=== PATIENT | female | born 1965 | race Caucasian/White ===

== ENCOUNTER 2018-01-09 15:45 | Emergency (ER) | payer MEDICAID, OTHER ==
[2018-01-09 15:46] VITALS: BMI 36.2
[2018-01-09 15:52] VITALS: O2SAT 99
[2018-01-09] MEDS ORDERED: Albuterol-Ipratrop 3 mg / 0.5 (3 ml) UD ONE ×2 (16:02→16:30)
--- NOTE | 2018-01-09 16:24 | C.PDOC ---
History Of Present Illness 52 y/o female, otherwise well, presents to the ED complaining of several days of cough, runny nose, and congestion. States that she feels as if she cannot catch her breath. +Tearing on exam. O2 sat is 92% on RA. On arrival patient is moving air, just very congested. Also notes subjective sensation of fever, did not take medication in the last couple of days. No nausea, vomiting, or chills. Time Seen by Provider: 01/09/18 15:57 Chief Complaint (Nursing): Cough, Cold, Congestion History Per: Patient History/Exam Limitations: no limitations Onset/Duration Of Symptoms: Days Current Symptoms Are (Timing): Still Present Associated Symptoms: Cough, Sinus Drainage, Nasal Congestion Past Medical History Reviewed: Historical Data, Nursing Documentation, Vital Signs Vital Signs: Last Vital Signs Temp 97.8 F 01/09/18 17:24 Pulse 84 01/09/18 17:24 Resp 18 01/09/18 17:24 BP 125/88 01/09/18 17:24 Pulse Ox 99 01/09/18 17:35 - Medical History PMH: Asthma, Fractures (RT. ARM/SCREW AND PLATE), Gastritis, HIV, HTN Surgical History: Tonsillectomy - [facility] Procedures CLOSED [ENDOSCOPIC] BIOPSY OF LARYNX (10/23/13) Family History: States: Unknown Family Hx - Social History Hx Tobacco Use: Yes Hx Alcohol Use: No Hx Substance Use: No - Immunization History Hx Tetanus Toxoid Vaccination: Yes Hx Influenza Vaccination: Yes Hx Pneumococcal Vaccination: Yes Review Of Systems Except As Marked, All Systems Reviewed And Found Negative. Constitutional: Negative for: Fever, Chills ENT: Positive for: Nose Discharge, Nose Congestion Cardiovascular: Negative for: Chest Pain Respiratory: Positive for: Cough Gastrointestinal: Negative for: Nausea, Vomiting Physical Exam - Physical Exam Appears: Non-toxic, No Acute Distress Skin: Normal Color, Warm, Dry Head: Atraumatic, Normacephalic, Other (Tender to frontal sinuses on palpation) Eye(s): bilateral: Normal Inspection Neck: Normal ROM Chest: Symmetrical Cardiovascular: Rhythm Regular, No Murmur Respiratory: No Accessory Muscle Use, Rhonchi (scattered), No Wheezing Extremity: Bilateral: Atraumatic, No Pedal Edema, Normal ROM Neurological/Psych: Oriented x3, Normal Speech, Normal Cranial Nerves ED Course And Treatment O2 Sat by Pulse Oximetry: 99 (RA) Pulse Ox Interpretation: Normal - Other Rad CXR X-Ray: Viewed By Me, Read By Radiologist Interpretation: FINDINGS: LINES AND TUBES: None. LUNG AND PLEURA: The lungs are well inflated and clear. No pleural effusion or pneumothorax. HEART AND MEDIASTINUM: The heart is not enlarged. The hilar and mediastinal contours are within normal limits. SKELETAL STRUCTURES: The bony structures are within normal limits for the patient's age. VISUALIZED UPPER ABDOMEN: Normal. OTHER FINDINGS: None. IMPRESSION: No active pulmonary disease. Medical Decision Making Medical Decision Making: Plan: Patient given duoneb x1, 200 mg tessalon perles, and 60 mg prednisone PO . Flu swab and chest x-ray ordered. Labs reviewed, negative flu. CXR is negative. 5:30pm On reevaluation patient reports feeling better. Lung sounds improved. Patient is a heavy smoker, knows she needs to quit. On further discussion, patient admits she has frequent sinus infections, and current symptoms are similar to prior episodes. Patient is medically stable for discharge. Counseled regarding diagnosis and smoking cessation. Disposition Counseled Patient/Family Regarding: Studies Performed, Diagnosis, Need For Followup, Rx Given, Smoking Cessation - Disposition Disposition: HOME/ ROUTINE Disposition Time: 17:27 Condition: IMPROVED Prescriptions: Albuterol HFA [Ventolin HFA 90 mcg/actuation (8 g)] 1 puff IH QID PRN #1 puff PRN Reason: Cough Amoxicillin/Clavulanate [Augmentin 875 MG-125 MG] 1 tab PO BID #14 tab Prednisone [Deltasone] 60 mg PO DAILY #12 tablet Instructions: Acute Bronchitis, Adult (DC) Forms: [employer] (Chilean), Work Excuse - POA Present On Arrival: None - Clinical Impression Clinical Impression: Sinusitis, Bronchitis - Scribe Statement The provider has reviewed the documentation as recorded by the Byron Crisostomo Provider Attestation: All medical record entries made by the Byron were at my direction and personally dictated by me. I have reviewed the chart and agree that the record accurately reflects my personal performance of the history, physical exam, medical decision making, and the department course for this patient. I have also personally directed, reviewed, and agree with the discharge instructions and disposition.
[2018-01-09] MEDS: Albuterol-Ipratrop 3 mg / 0.5 (3 ml) UD IH SCH (16:31)
[2018-01-09] MEDS ORDERED: Albuterol 0.042% Inhal Sol (1.25 mg/3 mL) UD ONE (16:46)
--- NOTE | 2018-01-09 16:54 | RAD ---
HISTORY: Cough and shortness of breath COMPARISON: No prior. TECHNIQUE: Chest PA and lateral FINDINGS: LINES AND TUBES: None. LUNG AND PLEURA: The lungs are well inflated and clear. No pleural effusion or pneumothorax. HEART AND MEDIASTINUM: The heart is not enlarged. The hilar and mediastinal contours are within normal limits. SKELETAL STRUCTURES: The bony structures are within normal limits for the patient's age. VISUALIZED UPPER ABDOMEN: Normal. OTHER FINDINGS: None. IMPRESSION: No active pulmonary disease.
[2018-01-09 17:27] VITALS: BP 125/88; PULSE 84; RESP 18; TEMP 97.8
== END 2018-01-09 17:35 | disposition home or self-care (01) ==
LOC: C.ER 15:45
DX: J40 Bronchitis, not specified as acute or chronic (principal); J32.9 Chronic sinusitis, unspecified; F17.210 Nicotine dependence, cigarettes, uncomplicated

== ENCOUNTER 2018-07-23 19:40 | Inpatient (IN) | payer MEDICAID ==
[2018-07-23 19:41] VITALS: BMI 36.2
[2018-07-23] MEDS ORDERED: Sodium Chloride 0.9% 1,000 ML IV ONE ×2 (20:12→21:49)
[2018-07-23] MEDS ORDERED: Sodium Chloride 0.9% 1,000 ML ONE ×2 (20:23→22:01)
[2018-07-23 20:30] LABS: BASO % 0.5 % (0.0-2.0); EOS # 0.2 K/uL (0.0-0.7); HEMOGLOBIN 13.6 g/dL (11.0-16.0); LYMPH % 15.3 % (20.0-40.0); MEAN CORPUSCULAR HEMOGLOBIN 30.1 pg (27.0-31.0); MEAN CORPUSCULAR HGB CONC 34.6 g/dL (33.0-37.0); MEAN PLATELET VOLUME 7.2 fL (7.2-11.7); MONO # 0.7 K/uL (0.0-0.8); NEUT # 4.8 K/uL (1.8-7.0); NEUT % 70.2 % (50.0-75.0); RBC 4.54 Mil/uL (3.80-5.20); RED CELL DISTRIBUTION WIDTH 14.5 % (11.5-14.5); WHITE BLOOD COUNT 6.8 K/uL (4.8-10.8)
[2018-07-23 20:35] LABS: MEAN CELL VOLUME 86.9 fL (81.0-99.0)
--- NOTE | 2018-07-23 20:47 | C.PDOC ---
History Of Present Illness 53 year old female, whose past medical history includes HTN (no longer taking medications) and HIV, presents to the ED for evaluation of abdominal pain which began 2 days ago. Patient also reports nausea. She states her pain is primarily in epigatric region and radiates towards her right side. Patient is also c/o right knee pain and swelling for several days. She denies fever, chills, headache, dizziness, chest pain, shortness of breath, and vomiting. Time Seen by Provider: 07/23/18 19:58 Chief Complaint (Nursing): Abdominal Pain History Per: Patient Onset/Duration Of Symptoms: Days (2) Current Symptoms Are (Timing): Still Present Location Of Pain/Discomfort: Epigastric, Other (right-sided abdominal pain ) Quality Of Discomfort: "Pain" Associated Symptoms: Nausea. denies: Fever, Chills, Vomiting Additional History Per: Patient Abnormal Vaginal Bleeding: No Past Medical History Reviewed: Historical Data, Nursing Documentation, Vital Signs Vital Signs: Last Vital Signs Temp 98.4 F 07/23/18 20:00 Pulse 99 H 07/23/18 20:00 Resp 18 07/23/18 20:00 BP 98/68 L 07/23/18 20:00 Pulse Ox 98 07/23/18 20:00 - Medical History PMH: Asthma, Fractures (RT. ARM/SCREW AND PLATE), Gastritis, HIV, HTN Surgical History: Tonsillectomy - [facility] Procedures CLOSED [ENDOSCOPIC] BIOPSY OF LARYNX (10/23/13) Family History: States: Unknown Family Hx - Social History Hx Tobacco Use: Yes Hx Alcohol Use: Yes Hx Substance Use: No - Immunization History Hx Tetanus Toxoid Vaccination: Yes Hx Influenza Vaccination: Yes Hx Pneumococcal Vaccination: Yes Review Of Systems Constitutional: Negative for: Fever, Chills Cardiovascular: Negative for: Chest Pain Respiratory: Negative for: Shortness of Breath Gastrointestinal: Positive for: Nausea, Abdominal Pain, Other (loose stools ). Negative for: Vomiting Musculoskeletal: Positive for: Other (right knee pain and swelling ) Neurological: Negative for: Headache, Dizziness Physical Exam - Physical Exam Appears: Non-toxic, No Acute Distress Skin: Normal Color, Warm, Dry Head: Atraumatic, Normacephalic Eye(s): bilateral: Normal Inspection Oral Mucosa: Moist Teeth: No Normal Dentition (poor ) Neck: Normal ROM, Supple Chest: Symmetrical, No Deformity, No Tenderness Cardiovascular: Rhythm Regular, No Murmur Respiratory: Normal Breath Sounds, No Rales, No Rhonchi, No Wheezing Gastrointestinal/Abdominal: Soft, Tenderness (epigastric, right upper quadrant ), No Guarding, No Rebound Extremity: Tenderness (to bilateral knees, right greater than left ), Capillary Refill (less than 2 seconds ), Swelling (to bilateral knees, right greater than left ), Other (+1 pitting edema to bilateral lower extremities ) Pulses: Left Dorsalis Pedis: Normal, Right Dorsalis Pedis: Normal Neurological/Psych: Oriented x3, Normal Speech, Normal Cognition ED Course And Treatment - Laboratory Results Result Diagrams: 07/23/18 20:25 07/23/18 20:25 O2 Sat by Pulse Oximetry: 98 - CT Scan/US CT A/P Other Rad Studies (CT/US): Read By Radiologist, Radiology Report Reviewed CT/US Interpretation: EXAM: CT Abdomen and Pelvis without IV contrast. CLINICAL HISTORY: URQ pain. TECHNIQUE: Axial computed tomography images of the abdomen and pelvis without intravenous contrast. 0.00 mGy-cm. CONTRAST: Without. COMPARISON: None provided. FINDINGS: LUNG BASES: The lung bases appear clear. No pleural effusions are seen. LIVER: There is hepatomegaly. The liver measured 18.1 cm in the midclavicular line. GALLBLADDER AND BILE DUCTS: The gallbladder appears normal in size and configuration. Cholelithiasis is identified. No biliary ductal dilatation is evident. PANCREAS: Unremarkable. SPLEEN: Unremarkable. ADRENAL GLANDS: Unremarkable. KIDNEYS, URETERS, AND BLADDER: The kidneys appear within normal limits. There is no hydronephrosis or hydroureter. No urinary calculi are seen. The urinary bladder appeared normal in size and configuration. STOMACH AND BOWEL: Unremarkable appearance of the stomach and bowel. No evidence of bowel obstruction. No evidence suggesting enteritis or colitis. APPENDIX: No evidence of acute appendicitis on CT examination. PERITONEUM: No free fluid. No free air. A very small umbilical hernia is present which contains fat. LYMPH NODES: No lymphadenopathy is evident. REPRODUCTIVE: Unremarkable as visualized. VASCULATURE: No evidence of abdominal aortic aneurysm. BONES: No aggressive appearing osseous lesion. No acute osseous pathology evident. Bilateral pars defects are noted within L5 with no associated spondylolisthesis. IMPRESSION: 1. Hepatomegaly. 2. Cholelithiasis. 3. Small umbilical hernia which contains fat. 4. Bilateral pars defects within L5. No spondylolisthesis. Medical Decision Making Medical Decision Making: Differential diagnoses include but are not limited to: gallbladder disease vs gastritis vs viral gastroenteritis Plan: Bloodwork, urinalysis, CT A/P ordered and reviewed. Morphine IVP, Pepcid IVP, and IV Fluids given. CT A/P was reviewed by me, and shows gallstones. Patient with elevated lipase and history of HIV, will diagnose as gallstones, pancreatitis, and patient with other comorbidities Patient is afebrile at this time, with no white count and no lactate (does not meet sepsis criteria) Will start patient on antibiotics at 22:17. Zosyn IVP given. Dr. Lyn (Hospitalist) paged. Disposition Discussed With Dr.: Cristino Lyn Counseled Patient/Family Regarding: Studies Performed, Diagnosis - Disposition Disposition: HOSPITALIZED Disposition Time: 22:15 Condition: GUARDED - Clinical Impression Clinical Impression: Pancreatitis, Gallstones - Scribe Statement The provider has reviewed the documentation as recorded by the Scribe (Brianne Jeter) Provider Attestation: All medical record entries made by the Scribe were at my direction and personally dictated by me. I have reviewed the chart and agree that the record accurately reflects my personal performance of the history, physical exam, medical decision making, and the department course for this patient. I have also personally directed, reviewed, and agree with the discharge instructions and disposition. Decision To Admit - Pt Status Changed To: Hospital Disposition Of: Observation - . Bed Request Type: Regular Admitting Physician: Cristino Lyn Patient Diagnosis: Pancreatitis, Gallstones
[2018-07-23 21:07] LABS: BLOOD UREA NITROGEN 18 mg/dL (7-17); CALCIUM 9.1 mg/dl (8.6-10.4); GFR NON-AFRICAN AMERICAN > 60; LIPASE 787 U/L (23-300)
[2018-07-23 21:23] LABS: ALB/GLOB RATIO 1.2 (1.0-2.1); ALBUMIN 4.2 g/dL (3.5-5.0); ALT/SGPT 12 U/L (9-52); AST/SGOT 34 U/L (14-36)
[2018-07-23] MEDS ORDERED: Piperacillin/Tazobact 3.375 GM in Sodium Chloride 100 ML IVPB STA (21:49)
[2018-07-23] MEDS ORDERED: Piperacillin/Tazobact 3.375 gm 100 ML IVPB ONE (22:01)
[2018-07-23 22:09] LABS: PROTHROMBIN TIME 11.2 SECONDS (9.7-12.2)
[2018-07-23 22:12] LABS: HCG,QUALITATIVE URINE NEGATIVE (NEGATIVE)
[2018-07-23 22:13] LABS: SQUAMOUS EPITHIAL < 1 /hpf (0-5); URINE BILIRUBIN NEGATIVE (NEGATIVE); URINE BLOOD 1+ (NEGATIVE); URINE CLARITY Clear (Clear); URINE COLOR Straw (YELLOW); URINE GLUCOSE (UA) NORMAL (Normal); URINE LEUKOCYTE ESTERASE NEG Leu/uL (Negative); URINE PROTEIN NEGATIVE (NEGATIVE); URINE UROBILINOGEN NORMAL mg/dL (0.2-1.0)
[2018-07-23 22:14] LABS: VENOUS BLOOD GAS BASE EXCESS -0.2 mmol/L (0.0-2.0); VENOUS BLOOD GAS PCO2 44 mmHg (40-60); VENOUS BLOOD GAS PO2 39 mm/Hg (30-55); VENOUS BLOOD PH 7.37 (7.32-7.43)
--- NOTE | 2018-07-24 03:05 | CP.PCM.HP ---
<Pilar Buenrostro - Last Filed: 07/24/18 03:21> History of Present Illness - History of Present Illness History of Present Illness: cc: "my stomach hurts" Ms. Galan is a Latvian speaking 53yo obese female with a PMH of HIV, hypertension, osteoarthritis, gastritis, and recent H. pylori diagnosis here today for worsening abdominal pain. She has had episodes of epigastric pain since 3 weeks ago when diagnosed with stomach infection. The omeprazole and clarithromycin she was given helped with that pain that has ebbed and flowed since diagnosis. The stabbing pain is 8/10 at worst and can go away completely after medication. The localized pain has worsened over the last week, and e specially over the last 2 days when a RUQ pain developed. She states it is two separate pains, but in tandem, worsens both. The pressure pain on her RUQ radiates around her flank and makes it difficult to take deep breaths. At worst it is a 6/10 and does not drop entirely away. Both abdominal pains are worse at night and worsened about 30 minutes after eating. Denies fever, change in weight, chest pain, nausea, vomiting, change in appetite, constipation, diarrhea. She admits to taking OTC Tylenol for the pain without relief. She averages about 5 tablets of Extra Strength Tylenol over the course of the day for the last month. PMH: HIV, HTN, OA, gastritis, H. pylori Med: unknown ([facility]: [phone]). 1 tab HIV Rx po daily, 1 tab PPI po daily, 1 tab Clarythromycin po daily, OTC Tylenol PRN All: NKDA PSxHx: tonsillectomy@8yo FamHx: Father - [place]@78, lung CA, MGM - stomach CA SocHx: smokes 7 cigs/day since 19yo, weekend drinker: 4-5 drinks/day since 19yo, denies illicit drug use. Lives with daughter, works at [employer]: Menopause within last year PMD: "Dr. Paris" CM: Arpan [phone] ext [phone] Present on Admission - Present on Admission Any Indicators Present on Admission: No Review of Systems - Constitutional Constitutional: Chills. absent: Fever, Headache, Weight Gain, Weight Loss - EENT Eyes: absent: Blurred Vision, Change in Vision, Diplopia Ears: Disequilibrium, Dizziness. absent: Decreased Hearing, Tinnitus Nose/Mouth/Throat: absent: Dysphagia, Sore Throat - Cardiovascular Cardiovascular: absent: Chest Pain, Palpitations - Respiratory Respiratory: Dyspnea. absent: Cough, Wheezing - Gastrointestinal Gastrointestinal: Abdominal Pain. absent: Belching, Bloating, Constipation, Diarrhea, Dysphagia, Hematochezia, Melena, Nausea, Vomiting - Genitourinary Genitourinary: absent: Difficulty Urinating, Dysuria, Urinary Frequency - Reproductive: Female Reproductive:Female: Post Menopausal - Musculoskeletal Musculoskeletal: absent: Muscle Cramps, Myalgias, Stiffness, Tingling - Integumentary Integumentary: absent: Bleeding Lesions, Rash - Neurological Neurological: absent: Numbness, Tingling - Endocrine Endocrine: absent: Fatigue - Hematologic/Lymphatic Hematologic: absent: Easy Bleeding, Easy Bruising Past Patient History - Past Medical History & Family History Past Medical History?: Yes - Past Social History Smoking Status: Heavy Smoker > 10 Cigarettes Daily Alcohol: Social Drugs: Denies Home Situation {Lives}: With Family - CARDIAC Hx Hypertension: Yes - PULMONARY Hx Asthma: Yes - NEUROLOGICAL Hx Neurological Disorder: No - HEENT Hx HEENT Problems: Yes Hx Glaucoma: Yes Other/Comment: VOCAL CORD LESION - ENDOCRINE/METABOLIC Hx Endocrine Disorders: No - HEMATOLOGICAL/ONCOLOGICAL Hx Human Immunodeficiency Virus (HIV): Yes - INTEGUMENTARY Hx Dermatological Problems: No - MUSCULOSKELETAL/RHEUMATOLOGICAL Hx Fractures: Yes (RT. ARM/SCREW AND PLATE) - GASTROINTESTINAL Hx Gastritis: Yes - GENITOURINARY/GYNECOLOGICAL Hx Genitourinary Disorders: No - PSYCHIATRIC Hx Substance Use: No - SURGICAL HISTORY Hx Tonsillectomy: Yes - ANESTHESIA Hx Anesthesia: Yes Hx Anesthesia Reactions: No Hx Malignant Hyperthermia: No Meds Allergies/Adverse Reactions: Allergies Allergy/AdvReac Type Severity Reaction Status Date / Time No Known Allergies Allergy Verified 07/23/18 20:04 Physical Exam - Constitutional Appears: Well, No Acute Distress - Head Exam Head Exam: ATRAUMATIC, NORMOCEPHALIC - Eye Exam Eye Exam: EOMI, Normal appearance, PERRL. absent: Scleral icterus Pupil Exam: NORMAL ACCOMODATION - ENT Exam ENT Exam: Mucous Membranes Moist - Respiratory Exam Respiratory Exam: Clear to Auscultation Bilateral, NORMAL BREATHING PATTERN. absent: Accessory Muscle Use - Cardiovascular Exam Cardiovascular Exam: REGULAR RHYTHM, +S1, +S2. absent: Systolic Murmur - GI/Abdominal Exam GI & Abdominal Exam: Guarding, Hyperactive Bowel Sounds, Soft, Tenderness. absent: Rebound Additional comments: obese TTP on epigastric region, TTP of LUQ radiates to epigastric region TTP on RUQ without radiation. + Goff's sign - Rectal Exam Rectal Exam: Deferred - Extremities Exam Extremities exam: Positive for: joint swelling (chronic R knee swelling), normal capillary refill, pedal pulses present. Negative for: calf tenderness Additional comments: IV access on R UE - Back Exam Back exam: absent: CVA tenderness (L), CVA tenderness (R) - Neurological Exam Neurological exam: Alert, CN II-XII Intact, Oriented x3, Reflexes Normal - Psychiatric Exam Psychiatric exam: Normal Affect, Normal Mood - Skin Skin Exam: Dry, Intact, Normal Color, Warm Results - Vital Signs Recent Vital Signs: Last Vital Signs Temp 97.4 F L 07/24/18 00:26 Pulse 85 07/24/18 00:26 Resp 18 07/24/18 00:26 BP 107/66 07/24/18 00:26 Pulse Ox 95 07/24/18 00:26 - Labs Result Diagrams: 07/23/18 20:25 07/23/18 20:25 Labs: Laboratory Results - last 24 hr 07/23/18 07/23/18 07/23/18 20:25 20:25 21:59 WBC 6.8 RBC 4.54 Hgb 13.6 Hct 39.4 MCV 86.9 D MCH 30.1 MCHC 34.6 RDW 14.5 Plt Count 223 MPV 7.2 Neut % (Auto) 70.2 Lymph % (Auto) 15.3 L Mayes % (Auto) 11.0 H Eos % (Auto) 3.0 Baso % (Auto) 0.5 Neut # (Auto) 4.8 Lymph # (Auto) 1.0 Mayes # (Auto) 0.7 Eos # (Auto) 0.2 Baso # (Auto) 0.0 PT 11.2 INR 1.0 APTT 28 pO2 VBG pH VBG pCO2 VBG HCO3 VBG Total CO2 VBG O2 Sat (Calc) VBG Base Excess VBG Potassium Glucose Lactate Sodium 136 Potassium 4.5 Chloride 102 Carbon Dioxide 24 Anion Gap 14 BUN 18 H Creatinine 0.6 L Est GFR ( Amer) > 60 Est GFR (Non-Af Amer) > 60 Random Glucose 175 H D Calcium 9.1 Phosphorus Magnesium Total Bilirubin 0.9 AST 34 ALT 12 Alkaline Phosphatase 97 Total Protein 7.7 Albumin 4.2 Globulin 3.5 Albumin/Globulin Ratio 1.2 Lipase 787 H Venous Blood Potassium Urine Color Urine Clarity Urine pH Ur Specific [place] Urine Protein Urine Glucose (UA) Urine Ketones Urine Blood Urine Nitrate Urine Bilirubin Urine Urobilinogen Ur Leukocyte Esterase Urine WBC (Auto) Urine RBC (Auto) Ur Squamous Epith Cells Urine HCG, Qual 07/23/18 07/23/18 07/23/18 21:59 22:05 22:07 WBC RBC Hgb Hct MCV MCH MCHC RDW Plt Count MPV Neut % (Auto) Lymph % (Auto) Mayes % (Auto) Eos % (Auto) Baso % (Auto) Neut # (Auto) Lymph # (Auto) Mayes # (Auto) Eos # (Auto) Baso # (Auto) PT INR APTT pO2 39 VBG pH 7.37 VBG pCO2 44 VBG HCO3 24.1 VBG Total CO2 26.8 VBG O2 Sat (Calc) 81.5 H VBG Base Excess -0.2 L VBG Potassium 3.6 Glucose 110 H Lactate 1.7 Sodium 139.0 Potassium Chloride 105.0 Carbon Dioxide Anion Gap BUN Creatinine Est GFR ( Amer) Est GFR (Non-Af Amer) Random Glucose Calcium Phosphorus 3.6 Magnesium 2.0 Total Bilirubin AST ALT Alkaline Phosphatase Total Protein Albumin Globulin Albumin/Globulin Ratio Lipase Venous Blood Potassium 3.6 Urine Color Straw Urine Clarity Clear Urine pH 5.0 Ur Specific [place] 1.004 Urine Protein Negative Urine Glucose (UA) Normal Urine Ketones Negative Urine Blood 1+ H Urine Nitrate Negative Urine Bilirubin Negative Urine Urobilinogen Normal Ur Leukocyte Esterase Neg Urine WBC (Auto) < 1 Urine RBC (Auto) 1 Ur Squamous Epith Cells < 1 Urine HCG, Qual Negative Assessment & Plan - Assessment and Plan (Free Text) Assessment: 53yo morbidly obese F PMH HIV, HTN, OA, gastritis, recent H. pylori diagnosis admitted for epigastric and RUQ pain. Plan: Epigastric Pain Gastritis with H. pylori infection vs. Pancreatitis lipase OA 787 Pepcid 20mg IVP, Morphine 2mg IVP, Zosyn 3.375g IVPB, 2L NS given in ED - CT A/P without contrast (07/23): pending read. prelim: hepatomegaly, unremarkable pancreas, unremarkable stomach - f/u amylase, lipase - f/u Blood Cx - f/u US Abdomen complete - Tramadol 50mg po TID prn - GI consulted: Dr. Hutton - meliton appreciated RUQ pain Cholelithiasis - CT A/P without contrast (07/23): pending read. prelim: cholelithiasis without biliary duct dilation - f/u US Abdomen complete - f/u HIDA scan - Gen Surg consulted: Dr. Griggs - help appreciated HIV Patient takes 1 tab per day for HIV, but is unsure of name or dosing. She has been controlled since being diagnosed 6 years ago - call pharmacy for medication and dosage - f/u CD4 count. WBC 6.8 OA Hypertension Patient denies being on any home medications BP has been stable since admission - call pharmacy to confirm medication regimen - monitor vitals Osteoarthritis of R knee - hold home Tylenol - Tramadol 50mg po TID prn PPx - DVT: SCDs - GI: PPI (call pharmacy to confirm) - Diet: NPO except meds - IVF: NS@125 d/w Dr. Riki Buenrostro PGY-1 - Date & Time Date: 07/23/18 Time: 23:00 <Cristino Lyn P - Last Filed: 07/24/18 08:09> Results - Vital Signs Recent Vital Signs: Last Vital Signs Temp 97.7 F 07/24/18 07:00 Pulse 68 07/24/18 07:00 Resp 20 07/24/18 07:00 BP 130/78 07/24/18 07:00 Pulse Ox 99 07/24/18 07:00 - Labs Result Diagrams: 07/23/18 20:25 07/24/18 07:28 Labs: Laboratory Results - last 24 hr 07/23/18 07/23/18 07/23/18 20:25 20:25 21:59 WBC 6.8 RBC 4.54 Hgb 13.6 Hct 39.4 MCV 86.9 D MCH 30.1 MCHC 34.6 RDW 14.5 Plt Count 223 MPV 7.2 Neut % (Auto) 70.2 Lymph % (Auto) 15.3 L Mayes % (Auto) 11.0 H Eos % (Auto) 3.0 Baso % (Auto) 0.5 Neut # (Auto) 4.8 Lymph # (Auto) 1.0 Mayes # (Auto) 0.7 Eos # (Auto) 0.2 Baso # (Auto) 0.0 PT 11.2 INR 1.0 APTT 28 pO2 VBG pH VBG pCO2 VBG HCO3 VBG Total CO2 VBG O2 Sat (Calc) VBG Base Excess VBG Potassium Glucose Lactate Sodium 136 Potassium 4.5 Chloride 102 Carbon Dioxide 24 Anion Gap 14 BUN 18 H Creatinine 0.6 L Est GFR ( Amer) > 60 Est GFR (Non-Af Amer) > 60 POC Glucose (mg/dL) Random Glucose 175 H D Calcium 9.1 Phosphorus Magnesium Total Bilirubin 0.9 AST 34 ALT 12 Alkaline Phosphatase 97 Total Protein 7.7 Albumin 4.2 Globulin 3.5 Albumin/Globulin Ratio 1.2 Amylase Lipase 787 H Venous Blood Potassium Urine Color Urine Clarity Urine pH Ur Specific [place] Urine Protein Urine Glucose (UA) Urine Ketones Urine Blood Urine Nitrate Urine Bilirubin Urine Urobilinogen Ur Leukocyte Esterase Urine WBC (Auto) Urine RBC (Auto) Ur Squamous Epith Cells Urine HCG, Qual 07/23/18 07/23/18 07/23/18 21:59 22:05 22:07 WBC RBC Hgb Hct MCV MCH MCHC RDW Plt Count MPV Neut % (Auto) Lymph % (Auto) Mayes % (Auto) Eos % (Auto) Baso % (Auto) Neut # (Auto) Lymph # (Auto) Mayes # (Auto) Eos # (Auto) Baso # (Auto) PT INR APTT pO2 39 VBG pH 7.37 VBG pCO2 44 VBG HCO3 24.1 VBG Total CO2 26.8 VBG O2 Sat (Calc) 81.5 H VBG Base Excess -0.2 L VBG Potassium 3.6 Glucose 110 H Lactate 1.7 Sodium 139.0 Potassium Chloride 105.0 Carbon Dioxide Anion Gap BUN Creatinine Est GFR ( Amer) Est GFR (Non-Af Amer) POC Glucose (mg/dL) Random Glucose Calcium Phosphorus 3.6 Magnesium 2.0 Total Bilirubin AST ALT Alkaline Phosphatase Total Protein Albumin Globulin Albumin/Globulin Ratio Amylase Lipase Venous Blood Potassium 3.6 Urine Color Straw Urine Clarity Clear Urine pH 5.0 Ur Specific [place] 1.004 Urine Protein Negative Urine Glucose (UA) Normal Urine Ketones Negative Urine Blood 1+ H Urine Nitrate Negative Urine Bilirubin Negative Urine Urobilinogen Normal Ur Leukocyte Esterase Neg Urine WBC (Auto) < 1 Urine RBC (Auto) 1 Ur Squamous Epith Cells < 1 Urine HCG, Qual Negative 07/24/18 07/24/18 06:35 07:28 WBC RBC Hgb Hct MCV MCH MCHC RDW Plt Count MPV Neut % (Auto) Lymph % (Auto) Mayes % (Auto) Eos % (Auto) Baso % (Auto) Neut # (Auto) Lymph # (Auto) Mayes # (Auto) Eos # (Auto) Baso # (Auto) PT INR APTT pO2 VBG pH VBG pCO2 VBG HCO3 VBG Total CO2 VBG O2 Sat (Calc) VBG Base Excess VBG Potassium Glucose Lactate Sodium 139 Potassium 4.2 Chloride 109 H Carbon Dioxide 25 Anion Gap 9 L BUN 15 Creatinine 0.8 Est GFR ( Amer) > 60 Est GFR (Non-Af Amer) > 60 POC Glucose (mg/dL) 113 H Random Glucose 104 D Calcium 8.6 Phosphorus 3.8 Magnesium 2.1 Total Bilirubin 0.3 AST 16 ALT 8 L D Alkaline Phosphatase 86 Total Protein 6.2 L Albumin 3.4 L Globulin 2.8 Albumin/Globulin Ratio 1.2 Amylase 68 Lipase 349 H Venous Blood Potassium Urine Color Urine Clarity Urine pH Ur Specific [place] Urine Protein Urine Glucose (UA) Urine Ketones Urine Blood Urine Nitrate Urine Bilirubin Urine Urobilinogen Ur Leukocyte Esterase Urine WBC (Auto) Urine RBC (Auto) Ur Squamous Epith Cells Urine HCG, Qual Attending/Attestation - Attestation I have personally seen and examined this patient.: Yes I have fully participated in the care of the patient.: Yes I have reviewed all pertinent clinical information: Yes Notes (Text): 07/24/18 08:05 Epigastric and RUQ pain Elevated lipase, dd of hiv med, recent alcohol, gb stones, peptic ulcer eroding ? peptic ulcer vs gastritis Clinically suspect cholecystitis, no inflammation on CT but small calcified calcuslus noticed on ct, close to cystic duct HIV on DAMICO recently changed meds? reason Alcohol abuse, counselled Plan HIDA/USG HIV/CD4 status, medication information for the treating physician GI/Surg consult See orders for detail.
[2018-07-24] MEDS: Sodium Chloride 0.9% 1,000 ML IV SCH ×3 (04:28→20:42)
--- NOTE | 2018-07-24 05:25 | CP.PCM.CON ---
<Hector Dukes - Last Filed: 07/24/18 09:03> History of Present Illness - History of Present Illness History of Present Illness: Surgery Consult Note- Dr. Griggs Reason for Consult: Cholecystitis 53F pmhx significant for HIV, recent H.Pylori presents to [facility] for progressively worsening mid-epigastric to RUQ abdominal pain over the last 3 weeks. States during that time she was diagnosed w/ H.Pylori and is currently taking medications. RUQ abd pain worsens after eating. Tylenol analgesia has provided minimal relief Denies: fevers, chills, changes in urinary habits, recent sick contacts/foreign travel PMH: HIV, H. Pylori, Gastritis, HTN, OA PSH: Tonillectomy ALL: NKDA SocialHx: smokes 1/2 ppd for > 30 years. social eoth, recreational drug use Review of Systems - Review of Systems All systems: reviewed and no additional remarkable complaints except - Constitutional Constitutional: As Per HPI Past Patient History - Past Medical History & Family History Past Medical History?: Yes - Past Social History Smoking Status: Heavy Smoker > 10 Cigarettes Daily Alcohol: Social Drugs: Denies Home Situation {Lives}: With Family - CARDIAC Hx Hypertension: Yes - PULMONARY Hx Asthma: Yes - NEUROLOGICAL Hx Neurological Disorder: No - HEENT Hx HEENT Problems: Yes Hx Glaucoma: Yes Other/Comment: VOCAL CORD LESION - ENDOCRINE/METABOLIC Hx Endocrine Disorders: No - HEMATOLOGICAL/ONCOLOGICAL Hx Human Immunodeficiency Virus (HIV): Yes - INTEGUMENTARY Hx Dermatological Problems: No - MUSCULOSKELETAL/RHEUMATOLOGICAL Hx Fractures: Yes (RT. ARM/SCREW AND PLATE) - GASTROINTESTINAL Hx Gastritis: Yes - GENITOURINARY/GYNECOLOGICAL Hx Genitourinary Disorders: No - PSYCHIATRIC Hx Substance Use: No - SURGICAL HISTORY Hx Tonsillectomy: Yes - ANESTHESIA Hx Anesthesia: Yes Hx Anesthesia Reactions: No Hx Malignant Hyperthermia: No Meds Allergies/Adverse Reactions: Allergies Allergy/AdvReac Type Severity Reaction Status Date / Time No Known Allergies Allergy Verified 07/23/18 20:04 - Medications Medications: Current Medications Sodium Chloride (Sodium Chloride 0.9%) 1,000 mls @ 125 mls/hr IV .Q8H [facility] Last Admin: 07/24/18 04:28 Dose: 125 mls/hr Tramadol HCl (Ultram) 50 mg PO TID PRN PRN Reason: Pain, moderate (4-7) Physical Exam - Constitutional Appears: Non-toxic, No Acute Distress - Eye Exam Eye Exam: EOMI. absent: Scleral icterus - ENT Exam ENT Exam: Mucous Membranes Moist - Respiratory Exam Respiratory Exam: NORMAL BREATHING PATTERN. absent: Accessory Muscle Use, Respiratory Distress - Cardiovascular Exam Cardiovascular Exam: REGULAR RHYTHM. absent: Bradycardia, Tachycardia - GI/Abdominal Exam GI & Abdominal Exam: Guarding (voluntary guarding), Soft, Tenderness (TTP RUQ, + Goff's, more tender to mid-epigastrum) - Neurological Exam Neurological exam: Alert, Oriented x3 - Psychiatric Exam Psychiatric exam: Normal Affect - Skin Skin Exam: Intact, Warm Results - Vital Signs Recent Vital Signs: Last Vital Signs Temp 97.4 F L 07/24/18 00:26 Pulse 85 07/24/18 00:26 Resp 18 07/24/18 00:26 BP 107/66 07/24/18 00:26 Pulse Ox 95 07/24/18 00:26 - Labs Result Diagrams: 07/24/18 07:28 07/24/18 07:28 Labs: Laboratory Results - last 24 hr 07/23/18 07/23/18 07/23/18 20:25 20:25 21:59 WBC 6.8 RBC 4.54 Hgb 13.6 Hct 39.4 MCV 86.9 D MCH 30.1 MCHC 34.6 RDW 14.5 Plt Count 223 MPV 7.2 Neut % (Auto) 70.2 Lymph % (Auto) 15.3 L [place] % (Auto) 11.0 H Eos % (Auto) 3.0 Baso % (Auto) 0.5 Neut # (Auto) 4.8 Lymph # (Auto) 1.0 Harmon # (Auto) 0.7 Eos # (Auto) 0.2 Baso # (Auto) 0.0 PT 11.2 INR 1.0 APTT 28 pO2 VBG pH VBG pCO2 VBG HCO3 VBG Total CO2 VBG O2 Sat (Calc) VBG Base Excess VBG Potassium Glucose Lactate Sodium 136 Potassium 4.5 Chloride 102 Carbon Dioxide 24 Anion Gap 14 BUN 18 H Creatinine 0.6 L Est GFR ( Amer) > 60 Est GFR (Non-Af Amer) > 60 Random Glucose 175 H D Calcium 9.1 Phosphorus Magnesium Total Bilirubin 0.9 AST 34 ALT 12 Alkaline Phosphatase 97 Total Protein 7.7 Albumin 4.2 Globulin 3.5 Albumin/Globulin Ratio 1.2 Lipase 787 H Venous Blood Potassium Urine Color Urine Clarity Urine pH Ur Specific [place] Urine Protein Urine Glucose (UA) Urine Ketones Urine Blood Urine Nitrate Urine Bilirubin Urine Urobilinogen Ur Leukocyte Esterase Urine WBC (Auto) Urine RBC (Auto) Ur Squamous Epith Cells Urine HCG, Qual 07/23/18 07/23/18 07/23/18 21:59 22:05 22:07 WBC RBC Hgb Hct MCV MCH MCHC RDW Plt Count MPV Neut % (Auto) Lymph % (Auto) [place] % (Auto) Eos % (Auto) Baso % (Auto) Neut # (Auto) Lymph # (Auto) [place] # (Auto) Eos # (Auto) Baso # (Auto) PT INR APTT pO2 39 VBG pH 7.37 VBG pCO2 44 VBG HCO3 24.1 VBG Total CO2 26.8 VBG O2 Sat (Calc) 81.5 H VBG Base Excess -0.2 L VBG Potassium 3.6 Glucose 110 H Lactate 1.7 Sodium 139.0 Potassium Chloride 105.0 Carbon Dioxide Anion Gap BUN Creatinine Est GFR ( Amer) Est GFR (Non-Af Amer) Random Glucose Calcium Phosphorus 3.6 Magnesium 2.0 Total Bilirubin AST ALT Alkaline Phosphatase Total Protein Albumin Globulin Albumin/Globulin Ratio Lipase Venous Blood Potassium 3.6 Urine Color Straw Urine Clarity Clear Urine pH 5.0 Ur Specific [place] 1.004 Urine Protein Negative Urine Glucose (UA) Normal Urine Ketones Negative Urine Blood 1+ H Urine Nitrate Negative Urine Bilirubin Negative Urine Urobilinogen Normal Ur Leukocyte Esterase Neg Urine WBC (Auto) < 1 Urine RBC (Auto) 1 Ur Squamous Epith Cells < 1 Urine HCG, Qual Negative Assessment & Plan - Assessment and Plan (Free Text) Assessment: 53F w/ Pancreatitis etiology gallstone vs HAART meds; H.Pylori and symptomatic cholelithiasis Plan: - resume H.Pylori Treatment - ordered ABD US; f/u - repeat AM labs - continue medical management - will follow closely - further recs [facility] <Serg Griggs - Last Filed: 07/26/18 17:17> Meds - Medications Medications: Current Medications Sodium Chloride (Sodium Chloride 0.9%) 1,000 mls @ 125 mls/hr IV .Q8H [facility] Last Admin: 07/26/18 12:00 Dose: Not Given Piperacillin Sod/Tazobactam Sod (Zosyn 3.375 Gm Iv Premix) 3.375 gm in 50 mls @ 100 mls/hr IVPB Q6H [facility]; Protocol Last Admin: 07/26/18 14:51 Dose: 100 mls/hr Ketorolac Tromethamine (Toradol) 30 mg IVP Q6 [facility] Pantoprazole Sodium (Protonix Inj) 40 mg IVP DAILY [facility] Last Admin: 07/26/18 09:12 Dose: 40 mg Results - Vital Signs Recent Vital Signs: Last Vital Signs Temp 97.5 F L 07/26/18 14:15 Pulse 66 07/26/18 14:15 Resp 18 07/26/18 14:15 BP 156/84 H 07/26/18 14:15 Pulse Ox 99 07/26/18 14:15 - Labs Result Diagrams: 07/26/18 06:50 07/26/18 06:50 Labs: Laboratory Results - last 24 hr 07/26/18 07/26/18 07/26/18 06:50 06:50 06:50 WBC 3.8 L RBC 4.27 Hgb 12.9 Hct 37.8 MCV 88.5 MCH 30.2 MCHC 34.2 RDW 14.0 Plt Count 177 MPV 7.7 Neut % (Auto) 56.2 Lymph % (Auto) 21.7 [place] % (Auto) 16.3 H Eos % (Auto) 5.6 H Baso % (Auto) 0.2 Neut # (Auto) 2.1 Lymph # (Auto) 0.8 L [place] # (Auto) 0.6 Eos # (Auto) 0.2 Baso # (Auto) 0.0 PT 11.2 INR 1.0 APTT 29 Sodium 138 Potassium 4.1 Chloride 106 Carbon Dioxide 27 Anion Gap 9 L BUN 11 Creatinine 0.7 Est GFR ( Amer) > 60 Est GFR (Non-Af Amer) > 60 Random Glucose 120 H Calcium 9.3 Phosphorus 4.1 Magnesium 2.0 Total Bilirubin 0.4 AST 20 ALT 11 Alkaline Phosphatase 85 Total Protein 6.6 Albumin 3.6 Globulin 3.0 Albumin/Globulin Ratio 1.2 Lipase 237 Beta HCG, Quant Blood Type Antibody Screen 07/26/18 07/26/18 06:50 06:50 WBC RBC Hgb Hct MCV MCH MCHC RDW Plt Count MPV Neut % (Auto) Lymph % (Auto) [place] % (Auto) Eos % (Auto) Baso % (Auto) Neut # (Auto) Lymph # (Auto) [place] # (Auto) Eos # (Auto) Baso # (Auto) PT INR APTT Sodium Potassium Chloride Carbon Dioxide Anion Gap BUN Creatinine Est GFR ( Amer) Est GFR (Non-Af Amer) Random Glucose Calcium Phosphorus Magnesium Total Bilirubin AST ALT Alkaline Phosphatase Total Protein Albumin Globulin Albumin/Globulin Ratio Lipase Beta HCG, Quant < 2.39 Blood Type A POSITIVE Antibody Screen Negative Attending/Attestation - Attestation I have personally seen and examined this patient.: Yes I have fully participated in the care of the patient.: Yes I have reviewed all pertinent clinical information: Yes Notes (Text): Pt was seen and examined at bedside Agree with above note and assessment Pt with Epigastric and RUQ pain Abdomen: Soft, Tender in epigastric area Labs and Radiology reviewed Ass: GS pancreatitis, Cholelithiasis Plan : NPO, IVF IV Antibiotics GI consult c.w current mx Plan d.w primary team in detail Risk and benefit explained in detail.
[2018-07-24 07:39] LABS: BASO % 0.4 % (0.0-2.0); EOS # 0.2 K/uL (0.0-0.7); EOS % 5.4 % (0.0-4.0); HEMOGLOBIN 12.3 g/dL (11.0-16.0); LYMPH # 0.9 K/uL (1.0-4.3); LYMPH % 23.5 % (20.0-40.0); MEAN CORPUSCULAR HEMOGLOBIN 29.9 pg (27.0-31.0); MEAN CORPUSCULAR HGB CONC 33.6 g/dL (33.0-37.0); MEAN PLATELET VOLUME 7.7 fL (7.2-11.7); MONO # 0.6 K/uL (0.0-0.8); MONO % 15.6 % (0.0-10.0); NEUT # 2.1 K/uL (1.8-7.0); NEUT % 55.1 % (50.0-75.0); RBC 4.1 Mil/uL (3.80-5.20); RED CELL DISTRIBUTION WIDTH 14.4 % (11.5-14.5)
[2018-07-24 07:51] LABS: ALB/GLOB RATIO 1.2 (1.0-2.1); ALBUMIN 3.4 g/dL (3.5-5.0); ALT/SGPT 8 U/L (9-52); AMYLASE 68 U/L (30-110); AST/SGOT 16 U/L (14-36); BLOOD UREA NITROGEN 15 mg/dL (7-17); CALCIUM 8.6 mg/dl (8.6-10.4); GFR NON-AFRICAN AMERICAN > 60; LIPASE 349 U/L (23-300)
[2018-07-24 08:10] LABS: WHITE BLOOD COUNT 3.8 K/uL (4.8-10.8)
--- NOTE | 2018-07-24 10:25 | CT ---
PROCEDURE: CT Abdomen and Pelvis without Oral or IV contrast. HISTORY: URQ pain COMPARISON: Abdominal ultrasound performed 07/24/18 TECHNIQUE: Contiguous axial images of the abdomen and pelvis. No oral or IV contrast administered. Coronal and Sagittal reformats generated and reviewed. Radiation dose: Total exam DLP = 977.75 mGy-cm. This CT exam was performed using one or more of the following dose reduction techniques: Automated exposure control, adjustment of the mA and/or kV according to patient size, and/or use of iterative reconstruction technique. FINDINGS: There is limited evaluation of the solid organs without the administration of IV contrast. LOWER THORAX: No visible consolidation, pleural effusion, or pneumothorax. LIVER: Hepatomegaly. GALLBLADDER AND BILE DUCTS: Nondistended gallbladder with high density material presumably cholelithiasis. Component of porcelain gallbladder cannot be excluded. PANCREAS: Unremarkable. SPLEEN: Unremarkable. ADRENALS: Unremarkable. KIDNEYS AND URETERS: No hydronephrosis or obstructing renal calculus. BLADDER: The urinary bladder appears unremarkable. REPRODUCTIVE: Uterus is present. APPENDIX: The appendix appears within normal limits of caliber. No secondary signs of acute appendicitis. BOWEL: The stomach is nondistended. Lack of oral contrast limits evaluation for bowel pathology. The bowel loops appear within normal limits of caliber without evidence of intestinal obstruction. PERITONEUM: No significant free fluid. No definite free air. LYMPH NODES: No bulky lymphadenopathy identified. VASCULATURE: No significant atherosclerotic calcifications present. No aortic aneurysm. BONES: Bilateral L5 spondylolysis. OTHER FINDINGS: Tiny fat containing umbilical hernia. IMPRESSION: Hepatomegaly. Cholelithiasis. Gallbladder is contracted. Calcification of the gallbladder wall/porcelain gallbladder cannot be excluded. Bilateral L5 spondylolysis. Additional findings as above. Preliminary impression was provided by [employer].
--- NOTE | 2018-07-24 10:40 | US ---
Abdominal ultrasound HISTORY: Epigastric abdominal pain. COMPARISON: CT scan dated 07/23/2018 TECHNIQUE: Real-time sonography was performed through the abdomen. Findings: Liver: 18.3 centimeters in length. Increased echogenicity of the hepatic parenchymal cortex suggestive for fatty infiltration versus hepatic parenchymal disease. Clinical correlation. Gallbladder: Contracted which limits evaluation. Cholelithiasis. Gallbladder wall thickness of 1.7 millimeters. Negative sonographic Goff's sign. Common bile duct measures 5.8 millimeters, within normal limits. Limited visualization of the pancreas. Spleen measures 10.2 centimeters in length, within normal limits. Visualized aorta and IVC are preserved. Right kidney: 12.1 x 4.0 x 4.9 centimeters. No calculi or hydronephrosis. Left Kidney: 11.1 x 6.3 x 5.0 centimeters. No calculi or hydronephrosis. Impression: 1. Prominent liver measuring 18.3 centimeters in length. Increased echogenicity of the hepatic parenchymal cortex suggestive for fatty infiltration versus hepatic parenchymal disease. Clinical correlation. 2. Contracted gallbladder with cholelithiasis. Given the contracted state, evaluation is somewhat limited. Negative sonographic Goff's sign. Clinical correlation. 3. Limited visualization of the pancreas.
--- NOTE | 2018-07-24 11:11 | CP.PCM.PN ---
<Joaquin Childers - Last Filed: 07/25/18 14:12> Subjective - Date & Time of Evaluation Date of Evaluation: 07/24/18 Time of Evaluation: 11:08 - Subjective Subjective: HOSPITALIST SERVICE Pt s/e at bedside, reports improvement of abd pain, completely resolved, pt is now hungry. Pt reports recent change to HIV meds 2wks ago w/ Dr Pamela Hay. Objective - Vital Signs/Intake and Output Vital Signs (last 24 hours): Temp Pulse Resp BP Pulse Ox 97.7 F 68 20 130/78 99 07/24/18 07:00 07/24/18 07:00 07/24/18 07:00 07/24/18 07:00 07/24/18 07:00 Intake and Output: 07/24/18 07/24/18 06:59 18:59 Intake Total 375 Balance 375 - Medications Medications: Current Medications Sodium Chloride (Sodium Chloride 0.9%) 1,000 mls @ 125 mls/hr IV .Q8H [facility] Last Admin: 07/24/18 04:28 Dose: 125 mls/hr Pantoprazole Sodium (Protonix Inj) 40 mg IVP DAILY [facility] Last Admin: 07/24/18 09:50 Dose: 40 mg Tramadol HCl (Ultram) 50 mg PO TID PRN PRN Reason: Pain, moderate (4-7) - Labs Labs: 07/24/18 07:28 07/24/18 07:28 PT 11.2 SECONDS (9.7-12.2) 07/23/18 21:59 INR 1.0 07/23/18 21:59 APTT 28 SECONDS (21-34) 07/23/18 21:59 - Additional Findings Additional findings: - Constitutional Appears: Non-toxic, No Acute Distress - Eye Exam Eye Exam: EOMI. absent: Scleral icterus - ENT Exam ENT Exam: Mucous Membranes Moist - Respiratory Exam Respiratory Exam: NORMAL BREATHING PATTERN. absent: Accessory Muscle Use, Respiratory Distress - Cardiovascular Exam Cardiovascular Exam: REGULAR RHYTHM. absent: Bradycardia, Tachycardia - GI/Abdominal Exam GI & Abdominal Exam: Guarding (voluntary guarding), Soft, Tender to deep palpation - Neurological Exam Neurological exam: Alert, Oriented x3 - Psychiatric Exam Psychiatric exam: Normal Affect - Skin Skin Exam: Intact, Warm, no jaundice noted Assessment and Plan - Assessment and Plan (Free Text) Assessment: Assessment: 53yo morbidly obese F PMH HIV, HTN, OA, gastritis, recent H. pylori diagnosis admitted for epigastric and RUQ pain. Plan: Epigastric Pain Gastritis with H. pylori infection vs. Pancreatitis lipase OA 787 Pepcid 20mg IVP, Morphine 2mg IVP, Zosyn 3.375g IVPB, 2L NS given in ED - HIDA pos for cholecystitis, no filling after 3hrs - GenSx notifyed, f/u recs - Lipase trending down - f/u Blood Cx - Tramadol 50mg po TID prn - GI consulted: Dr. Ludwig - help appreciated RUQ pain Cholelithiasis - Pos HIDA scan - Gen Surg consulted: Dr. Griggs - meliton appreciated HIV Patient takes 1 tab per day for HIV, but is unsure of name or dosing. She has been controlled since being diagnosed 6 years ago - Called pharmacy: pt was d/c on Stribild, now on Biktarvy since may- known side effect is pancreatitis - f/u CD4 count. WBC 6.8 OA Hypertension Patient denies being on any home medications BP has been stable since admission - monitor vitals Osteoarthritis of R knee - hold home Tylenol - Tramadol 50mg po TID prn PPx - DVT: SCDs - GI: PPI - Diet: NPO except meds - IVF: NS@125 DISPO: f/u gen sx recs <Kathryn Glasgow V - Last Filed: 07/25/18 23:20> Objective - Vital Signs/Intake and Output Vital Signs (last 24 hours): Temp Pulse Resp BP Pulse Ox 98.2 F 61 20 153/101 H 98 07/25/18 15:20 07/25/18 15:20 07/25/18 15:20 07/25/18 15:20 07/25/18 15:20 Intake and Output: 07/25/18 07/26/18 18:59 06:59 Intake Total 1050 Balance 1050 - Medications Medications: Current Medications Sodium Chloride (Sodium Chloride 0.9%) 1,000 mls @ 125 mls/hr IV .Q8H [facility] Last Admin: 07/25/18 21:00 Dose: Not Given Piperacillin Sod/Tazobactam Sod (Zosyn 3.375 Gm Iv Premix) 3.375 gm in 50 mls @ 100 mls/hr IVPB Q6H [facility]; Protocol Last Admin: 07/25/18 20:21 Dose: 100 mls/hr Pantoprazole Sodium (Protonix Inj) 40 mg IVP DAILY [facility] Last Admin: 07/25/18 10:35 Dose: 40 mg - Labs Labs: 07/25/18 06:19 07/25/18 06:19 PT 11.2 SECONDS (9.7-12.2) 07/23/18 21:59 INR 1.0 07/23/18 21:59 APTT 28 SECONDS (21-34) 07/23/18 21:59 Attending/Attestation - Attestation I have personally seen and examined this patient.: Yes I have fully participated in the care of the patient.: Yes I have reviewed all pertinent clinical information, including history, physical exam and plan: Yes Notes (Text): This is late computer entry for 07/24/18. Patient seen, examined, and case discussed with day-time resident. Patient seen this morning with resident. patient completed abdominal US, CT scan, and HIDA scan. GI and General surgery on board. Noted: positive HIDA scan; f/u surgery regarding plan. Medicine resident has spoken with patient's outpatient ID doctor, her HIV regiment had changed recently which can promote pancreatitis. patient is also noted an alcohol drinker which she reports she takes occasionally. Noted; Tramadol has been on hold since this morning. Per [facility] Criteria: patient does not have risk factors and LDH noted drawn on admission. Also to note, patient does not have diagnosed history of H. Pylori; possible suspected given Biaxin use but not confirmed. Assessment/Plan 1. Epigastric Pain Elevated Lipase Assessment/Plan * GI Consult (Dr. Ludwig) director of application development help appreciated * General surgery (Dr. Griggs) director of application development help appreciated * Lipase OA 787 * Abdominal US (07/24/18): hepatomegaly; cholelithiasis, gallbladder is contracted. Calcification of the gallbladder wall/porcelian gallbladder cannot be excluded. b/l L5 spondylosis. * CT abdomen/pelvis (07/24/18): prominent liver ~18.3 cm in length. Increased echogenicity of the hepatic parenchymal cortex. Contracted gallbladder with cholelithiasis. Negative sonographic Goff's sign. Limited visualized of the pancreas. * HIDA (07/24/18): abnromal HIDA, cystic duct is occluded, presumptive evidence of acute cholecystitis. * Tramadol held in the morning * NPO 2. Known history of HIV Assessment/Plan * Diagnosed 6 years ago; follow-up with outpatient infectious disease * Recently changed from Stribild to Biktarvy * HIV screening, lymphocyte subset 3 3. Hypertension Assessment/Plan * Patient denies being on any home medications * monitor vital signs 4. Osteoarthritis of R knee Assessment/Plan * hold home Tylenol * held Tramadol 50mg po TID prn on admission 5. PPx * DVT ppx: SCDs * GI: PPI * Diet: NPO except meds * IVF: NS@125 DISPO: Reviewed imaging; noted positive HIDA, patient to remain NPO, f/u general surgery i
--- NOTE | 2018-07-24 11:58 | NM ---
Date of service: 07/24/2018 PROCEDURE: Nuclear Medicine Hepatobiliary Scan HISTORY: + Goff's, cholecystitis COMPARISON: July 24, 2018 abdominal ultrasound. July 23, 2018 CT abdomen and pelvis. TECHNIQUE: 6.1 mCi of technetium 99m Mebrofenin was administered intravenously. Planar images of the abdomen were obtained at 5 min intervals to 60 mins. Delayed images were also obtained. FINDINGS: LIVER: Timely and homogenous uptake. COMMON BILE DUCT: identified at 20 mins. GALLBLADDER: Not identified at 03:00 hours. SMALL BOWEL: Identified at 25 mins. IMPRESSION: Abnormal hepatobiliary Scan. The cystic duct is occluded, presumptive evidence for acute cholecystitis..
[2018-07-24 12:10] LABS: HEPATITIS B SURFACE AG Negative (NEGATIVE)
[2018-07-24 12:15] LABS: HEPATITIS A IGM NEGATIVE (NEGATIVE); HEPATITIS B CORE AB NEGATIVE (NEGATIVE)
[2018-07-24 12:27] LABS: HEPATITIS C ANTIBODY NEGATIVE (NEGATIVE)
[2018-07-24] MEDS: Piperacill/Tazo 3.375gm in Dex 3.375 GM/50 ML BAG IVPB SCH ×2 (14:59→20:41)
[2018-07-24] MEDS ORDERED: Albuterol-Ipratrop 3 mg / 0.5 (3 ml) UD ONE (17:53)
--- NOTE | 2018-07-24 21:26 | CP.PCM.CON ---
History of Present Illness - History of Present Illness History of Present Illness: PGY5 GI Consult for Dr Oziel Galan is a 53F w/ hx of HIV, recent H.Pylori? who presents to [facility] for progressively worsening mid-epigastric and RUQ abdominal pain. Pt states that the pain started 3 weeks prior.She notes the pain peaked at 8 out of 10.. Denies any aggravating or alleviating factors. Denies any fever, chills or diaphoresis. She notes that her PCP diagnosed her w/ H. pylori 1 month prior and she took abx and PPI intermittently when she had symptoms for 6 days. Pt denies any change in bowel habit, rectal bleeding, nausea, and vomiting, recent sick. Pt states that she has 6 bottles of beer 3 weeks prior. She was found to have cholecystitis and elevated lipse of ~790 upon arrival to the ED. Pt states that her pain eventually resolved after admission PMH: HIV, H. Pylori, Gastritis, HTN, OA PSH: Tonillectomy ALL: NKDA SocialHx: smokes 1/2 ppd for > 30 years. social eoth, recreational drug use Endo Hx: EGD 2 years prior, denies colonoscopy ROS: 12 point ROS conducted, neg other than above Past Patient History - Past Medical History & Family History Past Medical History?: Yes - Past Social History Smoking Status: Heavy Smoker > 10 Cigarettes Daily Alcohol: Social Drugs: Denies Home Situation {Lives}: With Family - CARDIAC Hx Hypertension: Yes - PULMONARY Hx Asthma: Yes - NEUROLOGICAL Hx Neurological Disorder: No - HEENT Hx HEENT Problems: Yes Hx Glaucoma: Yes Other/Comment: VOCAL CORD LESION - ENDOCRINE/METABOLIC Hx Endocrine Disorders: No - HEMATOLOGICAL/ONCOLOGICAL Hx Human Immunodeficiency Virus (HIV): Yes - INTEGUMENTARY Hx Dermatological Problems: No - MUSCULOSKELETAL/RHEUMATOLOGICAL Hx Fractures: Yes (RT. ARM/SCREW AND PLATE) - GASTROINTESTINAL Hx Gastritis: Yes - GENITOURINARY/GYNECOLOGICAL Hx Genitourinary Disorders: No - PSYCHIATRIC Hx Substance Use: No - SURGICAL HISTORY Hx Tonsillectomy: Yes - ANESTHESIA Hx Anesthesia: Yes Hx Anesthesia Reactions: No Hx Malignant Hyperthermia: No Meds Allergies/Adverse Reactions: Allergies Allergy/AdvReac Type Severity Reaction Status Date / Time No Known Allergies Allergy Verified 07/23/18 20:04 - Medications Medications: Current Medications Sodium Chloride (Sodium Chloride 0.9%) 1,000 mls @ 125 mls/hr IV .Q8H [facility] Last Admin: 07/24/18 20:42 Dose: 125 mls/hr Piperacillin Sod/Tazobactam Sod (Zosyn 3.375 Gm Iv Premix) 3.375 gm in 50 mls @ 100 mls/hr IVPB Q6H [facility]; Protocol Last Admin: 07/24/18 20:41 Dose: 100 mls/hr Pantoprazole Sodium (Protonix Inj) 40 mg IVP DAILY [facility] Last Admin: 07/24/18 09:50 Dose: 40 mg Tramadol HCl (Ultram) 50 mg PO TID PRN PRN Reason: Pain, moderate (4-7) Physical Exam - Constitutional Appears: Well, No Acute Distress - Head Exam Head Exam: ATRAUMATIC, NORMOCEPHALIC - Eye Exam Eye Exam: Normal appearance - ENT Exam ENT Exam: Mucous Membranes Moist, Normal Exam - Neck Exam Neck exam: Positive for: Normal Inspection - Respiratory Exam Respiratory Exam: Clear to Auscultation Bilateral, NORMAL BREATHING PATTERN. absent: Rhonchi, Wheezes, Respiratory Distress - Cardiovascular Exam Cardiovascular Exam: REGULAR RHYTHM, +S1, +S2 - GI/Abdominal Exam GI & Abdominal Exam: Normal Bowel Sounds, Soft. absent: Guarding, Organomegaly, Rebound, Rigid - Extremities Exam Extremities exam: Negative for: joint swelling, pedal edema - Neurological Exam Neurological exam: Alert, Oriented x3 - Psychiatric Exam Psychiatric exam: Normal Affect, Normal Mood - Skin Skin Exam: Dry, Intact, Normal Color, Warm Results - Vital Signs Recent Vital Signs: Last Vital Signs Temp 97.8 F 07/24/18 15:00 Pulse 72 07/24/18 15:00 Resp 20 07/24/18 15:00 BP 141/93 H 07/24/18 15:00 Pulse Ox 96 07/24/18 15:00 - Labs Result Diagrams: 07/24/18 07:28 07/24/18 07:28 Labs: Laboratory Results - last 24 hr 07/23/18 07/23/18 07/23/18 21:59 21:59 22:05 WBC RBC Hgb Hct MCV MCH MCHC RDW Plt Count MPV Neut % (Auto) Lymph % (Auto) [place] % (Auto) Eos % (Auto) Baso % (Auto) Neut # (Auto) Lymph # (Auto) [place] # (Auto) Eos # (Auto) Baso # (Auto) PT 11.2 INR 1.0 APTT 28 pO2 39 VBG pH 7.37 VBG pCO2 44 VBG HCO3 24.1 VBG Total CO2 26.8 VBG O2 Sat (Calc) 81.5 H VBG Base Excess -0.2 L VBG Potassium 3.6 Sodium 139.0 Chloride 105.0 Glucose 110 H Lactate 1.7 Potassium Carbon Dioxide Anion Gap BUN Creatinine Est GFR ( Amer) Est GFR (Non-Af Amer) POC Glucose (mg/dL) Random Glucose Calcium Phosphorus 3.6 Magnesium 2.0 Total Bilirubin AST ALT Alkaline Phosphatase Lactate Dehydrogenase Total Protein Albumin Globulin Albumin/Globulin Ratio Amylase Lipase Venous Blood Potassium 3.6 Urine Color Urine Clarity Urine pH Ur Specific [place] Urine Protein Urine Glucose (UA) Urine Ketones Urine Blood Urine Nitrate Urine Bilirubin Urine Urobilinogen Ur Leukocyte Esterase Urine WBC (Auto) Urine RBC (Auto) Ur Squamous Epith Cells Urine HCG, Qual Hepatitis A IgM Ab Hep Bs Antigen Hep B Core IgM Ab Hepatitis C Antibody HIV 1&2 Antibody Screen 07/23/18 07/24/18 07/24/18 22:07 06:35 07:28 WBC 3.8 L RBC 4.10 Hgb 12.3 Hct 36.5 MCV 89.0 D MCH 29.9 MCHC 33.6 RDW 14.4 Plt Count 192 MPV 7.7 Neut % (Auto) 55.1 Lymph % (Auto) 23.5 [place] % (Auto) 15.6 H Eos % (Auto) 5.4 H Baso % (Auto) 0.4 Neut # (Auto) 2.1 Lymph # (Auto) 0.9 L [place] # (Auto) 0.6 Eos # (Auto) 0.2 Baso # (Auto) 0.0 PT INR APTT pO2 VBG pH VBG pCO2 VBG HCO3 VBG Total CO2 VBG O2 Sat (Calc) VBG Base Excess VBG Potassium Sodium Chloride Glucose Lactate Potassium Carbon Dioxide Anion Gap BUN Creatinine Est GFR ( Amer) Est GFR (Non-Af Amer) POC Glucose (mg/dL) 113 H Random Glucose Calcium Phosphorus Magnesium Total Bilirubin AST ALT Alkaline Phosphatase Lactate Dehydrogenase Total Protein Albumin Globulin Albumin/Globulin Ratio Amylase Lipase Venous Blood Potassium Urine Color Straw Urine Clarity Clear Urine pH 5.0 Ur Specific [place] 1.004 Urine Protein Negative Urine Glucose (UA) Normal Urine Ketones Negative Urine Blood 1+ H Urine Nitrate Negative Urine Bilirubin Negative Urine Urobilinogen Normal Ur Leukocyte Esterase Neg Urine WBC (Auto) < 1 Urine RBC (Auto) 1 Ur Squamous Epith Cells < 1 Urine HCG, Qual Negative Hepatitis A IgM Ab Hep Bs Antigen Hep B Core IgM Ab Hepatitis C Antibody HIV 1&2 Antibody Screen 07/24/18 07/24/18 07/24/18 07:28 11:15 11:15 WBC RBC Hgb Hct MCV MCH MCHC RDW Plt Count MPV Neut % (Auto) Lymph % (Auto) [place] % (Auto) Eos % (Auto) Baso % (Auto) Neut # (Auto) Lymph # (Auto) [place] # (Auto) Eos # (Auto) Baso # (Auto) PT INR APTT pO2 VBG pH VBG pCO2 VBG HCO3 VBG Total CO2 VBG O2 Sat (Calc) VBG Base Excess VBG Potassium Sodium 139 Chloride 109 H Glucose Lactate Potassium 4.2 Carbon Dioxide 25 Anion Gap 9 L BUN 15 Creatinine 0.8 Est GFR ( Amer) > 60 Est GFR (Non-Af Amer) > 60 POC Glucose (mg/dL) Random Glucose 104 D Calcium 8.6 Phosphorus 3.8 Magnesium 2.1 Total Bilirubin 0.3 AST 16 ALT 8 L D Alkaline Phosphatase 86 Lactate Dehydrogenase 312 L Total Protein 6.2 L Albumin 3.4 L Globulin 2.8 Albumin/Globulin Ratio 1.2 Amylase 68 Lipase 349 H Venous Blood Potassium Urine Color Urine Clarity Urine pH Ur Specific [place] Urine Protein Urine Glucose (UA) Urine Ketones Urine Blood Urine Nitrate Urine Bilirubin Urine Urobilinogen Ur Leukocyte Esterase Urine WBC (Auto) Urine RBC (Auto) Ur Squamous Epith Cells Urine HCG, Qual Hepatitis A IgM Ab Negative Hep Bs Antigen Negative Hep B Core IgM Ab Negative Hepatitis C Antibody Negative HIV 1&2 Antibody Screen Reactive Assessment & Plan - Assessment and Plan (Free Text) Assessment: Claudia Galan is a 53 F w/ hx of obesity, HOV, HL who presents with abd pain Acute cholecystitis; + HIDA Cholelithiasis; choledocholithiasis unlikely in setting of normal CBD and LFTs Abd pain 2/2 above, vs biliary colic vs PUD Elevated lipase; unlikey pancreatitis (only 1 out of 3 criteria: +abd pain, neg CT findings, neg 3x upper limit of lipase) H. Pylori Plan: -continue protonix 40mg PO daily -diet as per surgery -no plan for ERCP -monitor LFTs -is no plan for surgery in the near future, can consider EGD to r/o H. pylori and PUD -continue abx -rest of plan as per primary team d/w Dr. Ludwig
[2018-07-25] MEDS: Piperacill/Tazo 3.375gm in Dex 3.375 GM/50 ML BAG IVPB SCH ×4 (03:10→20:21)
[2018-07-25] MEDS: Sodium Chloride 0.9% 1,000 ML IV SCH ×3 (04:03→21:00)
[2018-07-25 06:27] LABS: BASO % 0.2 % (0.0-2.0); EOS # 0.2 K/uL (0.0-0.7); HEMOGLOBIN 13.5 g/dL (11.0-16.0); LYMPH # 0.9 K/uL (1.0-4.3); LYMPH % 22.7 % (20.0-40.0); MEAN CELL VOLUME 88.7 fL (81.0-99.0); MEAN CORPUSCULAR HEMOGLOBIN 30.5 pg (27.0-31.0); MEAN CORPUSCULAR HGB CONC 34.4 g/dL (33.0-37.0); MEAN PLATELET VOLUME 7.6 fL (7.2-11.7); MONO # 0.6 K/uL (0.0-0.8); MONO % 14.1 % (0.0-10.0); NEUT # 2.3 K/uL (1.8-7.0); RBC 4.43 Mil/uL (3.80-5.20); RED CELL DISTRIBUTION WIDTH 14.2 % (11.5-14.5)
[2018-07-25 07:31] LABS: ALB/GLOB RATIO 1.2 (1.0-2.1); ALBUMIN 3.6 g/dL (3.5-5.0); ALT/SGPT 9 U/L (9-52); AST/SGOT 21 U/L (14-36); BLOOD UREA NITROGEN 10 mg/dL (7-17); CALCIUM 9.3 mg/dl (8.6-10.4); GFR NON-AFRICAN AMERICAN > 60
--- NOTE | 2018-07-25 08:56 | CP.PCM.PN ---
<Sola Swensonah - Last Filed: 07/25/18 08:59> Subjective - Date & Time of Evaluation Date of Evaluation: 07/25/18 Time of Evaluation: 07:18 - Subjective Subjective: General Surgery progress note for Dr. Griggs Patient seen and examined this am at bedside. She states her abdominal pain is improving. She denies f/c, n/v, SP and SOB. Objective - Vital Signs/Intake and Output Vital Signs (last 24 hours): Temp Pulse Resp BP Pulse Ox 97.9 F 65 20 148/84 98 07/25/18 08:00 07/25/18 08:00 07/25/18 08:00 07/25/18 08:00 07/25/18 08:00 Intake and Output: 07/25/18 07/25/18 06:59 18:59 Intake Total 1000 Balance 1000 - Medications Medications: Current Medications Sodium Chloride (Sodium Chloride 0.9%) 1,000 mls @ 125 mls/hr IV .Q8H [facility] Last Admin: 07/25/18 04:03 Dose: 125 mls/hr Piperacillin Sod/Tazobactam Sod (Zosyn 3.375 Gm Iv Premix) 3.375 gm in 50 mls @ 100 mls/hr IVPB Q6H [facility]; Protocol Last Admin: 07/25/18 03:10 Dose: 100 mls/hr Pantoprazole Sodium (Protonix Inj) 40 mg IVP DAILY [facility] Last Admin: 07/24/18 09:50 Dose: 40 mg Tramadol HCl (Ultram) 50 mg PO TID PRN PRN Reason: Pain, moderate (4-7) - Labs Labs: 07/25/18 06:19 07/25/18 06:19 PT 11.2 SECONDS (9.7-12.2) 07/23/18 21:59 INR 1.0 07/23/18 21:59 APTT 28 SECONDS (21-34) 07/23/18 21:59 - Constitutional Appears: Non-toxic, No Acute Distress - Head Exam Head Exam: ATRAUMATIC, NORMOCEPHALIC - Eye Exam Eye Exam: EOMI - ENT Exam ENT Exam: Mucous Membranes Moist - Respiratory Exam Respiratory Exam: NORMAL BREATHING PATTERN - Cardiovascular Exam Cardiovascular Exam: REGULAR RHYTHM - GI/Abdominal Exam GI & Abdominal Exam: Soft, Tenderness (epigastric/RUQ) - Neurological Exam Neurological Exam: Alert, Awake, Oriented x3 - Psychiatric Exam Psychiatric exam: Normal Affect, Normal Mood - Skin Skin Exam: Dry, Intact, Normal Color, Warm Assessment and Plan - Assessment and Plan (Free Text) Assessment: 53 yr old female with pacreatitis d/t gallstone vs HAART medications, epigastric pain d/t pancreatitis vs H. pylori Plan: - likely Cholecytitis related given imaging results - recommend Cholecystectomy when symptoms resolve - continue medical management - will follow closely - further recs per Dr. Griggs surgical attending Winnie Swenson, PGY1 <Serg Griggs - Last Filed: 07/26/18 17:19> Objective - Vital Signs/Intake and Output Vital Signs (last 24 hours): Temp Pulse Resp BP Pulse Ox 97.7 F 68 20 152/90 H 98 07/26/18 17:16 07/26/18 17:16 07/26/18 17:16 07/26/18 17:16 07/26/18 17:16 Intake and Output: 07/26/18 07/26/18 06:59 18:59 Intake Total 1540 Balance 1540 - Medications Medications: Current Medications Sodium Chloride (Sodium Chloride 0.9%) 1,000 mls @ 125 mls/hr IV .Q8H [facility] Last Admin: 07/26/18 12:00 Dose: Not Given Piperacillin Sod/Tazobactam Sod (Zosyn 3.375 Gm Iv Premix) 3.375 gm in 50 mls @ 100 mls/hr IVPB Q6H [facility]; Protocol Last Admin: 07/26/18 14:51 Dose: 100 mls/hr Ketorolac Tromethamine (Toradol) 30 mg IVP Q6 [facility] Pantoprazole Sodium (Protonix Inj) 40 mg IVP DAILY [facility] Last Admin: 07/26/18 09:12 Dose: 40 mg - Labs Labs: 07/26/18 06:50 07/26/18 06:50 PT 11.2 SECONDS (9.7-12.2) 07/26/18 06:50 INR 1.0 07/26/18 06:50 APTT 29 SECONDS (21-34) 07/26/18 06:50 Attending/Attestation - Attestation I have personally seen and examined this patient.: Yes I have fully participated in the care of the patient.: Yes I have reviewed all pertinent clinical information, including history, physical exam and plan: Yes Notes (Text): Pt was seen and examined at bedside Agree with above note and assessment Pt is improving clinically Vital stable Pt would need Lap Cholecystectomy Consent NPO, IVF Plan d.w pt in detail. Risk and benefit explained in detail.
--- NOTE | 2018-07-25 10:53 | PN ---
DATE: 07/25/2018 LOCATION: 552, bed A. SUBJECTIVE: This is a 53-year-old female, seen and examined around initially for GI consultation on 07/24/2018, reexamined again early today without any significant clinical changes, with less abdominal pain. The entire chart is reviewed including, but not limited to the most recent lab and radiology study results and yesterday's ultrasound report is seen with evidence of cholelithiasis. No evidence of common bile duct stone. HIDA scan was done, official report is seen, abnormal with cystic duct obstruction. Most recent lab results today showed normal CBC, blood glucose level 112, with normal liver function test. Lipase level is still pending. PHYSICAL EXAMINATION: GENERAL: A 53-year-old female. Awake, alert, oriented. Denied any chest pain, palpitation, or significant shortness of breath, chills or fever. VITAL SIGNS: The patient's heart rate is 70, afebrile with blood pressure of 132/74, respiratory rate 20 to 22. HEENT: Pale dry oral mucous membrane. Nonicteric sclerae. LUNGS: Few scattered crepitation. Decreased air entry at bases. HEART: Positive S1 and S2. ABDOMEN: Soft with mild generalized tenderness. No mass or organomegaly. No rebound tenderness or guarding. IMPRESSION: 1. Cholelithiasis with cholecystitis. 2. Re-exacerbation of peptic ulcer disease. 3. Known history of human immunodeficiency virus. 4. Hypertension. 5. Osteoarthritis. 6. Status post tonsillectomy. SUGGESTION: 1. Continue current management. 2. Surgical reevaluation. 3. No need for aggressive GI workup in the meantime. Chao Hanna MD
--- NOTE | 2018-07-25 14:12 | CP.PCM.DIS ---
Provider - Provider Date of Admission: 07/23/18 22:16 Attending physician: Kathryn Glasgow DO Consults: 07/24/18 01:45 Gastroenterology Consult Routine Comment: Consulting Provider: Chao Ludwig Consulting Physician: Chao Ludwig Reason for Consult: Hx H. pylori, cholecystitis General Surgery Consult Routine Comment: Consulting Provider: Serg Griggs Consulting Physician: Serg Griggs Reason for Consult: + Goff's, cholecystitis Hospital Course - Lab Results Lab Results: Micro Results 07/23/18 23:09 Blood Blood Culture - Preliminary NO GROWTH AFTER 24 HOURS 07/23/18 23:09 Blood Blood Culture - Preliminary NO GROWTH AFTER 24 HOURS Most Recent Lab Values WBC 4.0 K/uL (4.8-10.8) L 07/25/18 06:19 RBC 4.43 Mil/uL (3.80-5.20) 07/25/18 06:19 Hgb 13.5 g/dL (11.0-16.0) 07/25/18 06:19 Hct 39.3 % (34.0-47.0) 07/25/18 06:19 MCV 88.7 fL (81.0-99.0) 07/25/18 06:19 MCH 30.5 pg (27.0-31.0) 07/25/18 06:19 MCHC 34.4 g/dL (33.0-37.0) 07/25/18 06:19 RDW 14.2 % (11.5-14.5) 07/25/18 06:19 Plt Count 176 K/uL (130-400) 07/25/18 06:19 MPV 7.6 fL (7.2-11.7) 07/25/18 06:19 Neut % (Auto) 57.0 % (50.0-75.0) 07/25/18 06:19 Lymph % (Auto) 22.7 % (20.0-40.0) 07/25/18 06:19 [place] % (Auto) 14.1 % (0.0-10.0) H 07/25/18 06:19 Eos % (Auto) 6.0 % (0.0-4.0) H 07/25/18 06:19 Baso % (Auto) 0.2 % (0.0-2.0) 07/25/18 06:19 Neut # (Auto) 2.3 K/uL (1.8-7.0) 07/25/18 06:19 Lymph # (Auto) 0.9 K/uL (1.0-4.3) L 07/25/18 06:19 [place] # (Auto) 0.6 K/uL (0.0-0.8) 07/25/18 06:19 Eos # (Auto) 0.2 K/uL (0.0-0.7) 07/25/18 06:19 Baso # (Auto) 0.0 K/uL (0.0-0.2) 07/25/18 06:19 PT 11.2 SECONDS (9.7-12.2) 07/23/18 21:59 INR 1.0 07/23/18 21:59 APTT 28 SECONDS (21-34) 07/23/18 21:59 pO2 39 mm/Hg (30-55) 07/23/18 22:05 VBG pH 7.37 (7.32-7.43) 07/23/18 22:05 VBG pCO2 44 mmHg (40-60) 07/23/18 22:05 VBG HCO3 24.1 mmol/L 07/23/18 22:05 VBG Total CO2 26.8 mmol/L (22-28) 07/23/18 22:05 VBG O2 Sat (Calc) 81.5 % (40-65) H 07/23/18 22:05 VBG Base Excess -0.2 mmol/L (0.0-2.0) L 07/23/18 22:05 VBG Potassium 3.6 mmol/L (3.6-5.2) 07/23/18 22:05 Sodium 139.0 mmol/l (132-148) 07/23/18 22:05 Chloride 105.0 mmol/L (98-107) 07/23/18 22:05 Glucose 110 mg/dl (65-105) H 07/23/18 22:05 Lactate 1.7 mmol/L (0.7-2.1) 07/23/18 22:05 Sodium 138 mmol/L (132-148) 07/25/18 06:19 Potassium 4.1 mmol/L (3.6-5.2) 07/25/18 06:19 Chloride 105 mmol/L (98-107) 07/25/18 06:19 Carbon Dioxide 27 mmol/L (22-30) 07/25/18 06:19 Anion Gap 9 (10-20) L 07/25/18 06:19 BUN 10 mg/dL (7-17) 07/25/18 06:19 Creatinine 0.7 mg/dL (0.7-1.2) 07/25/18 06:19 Est GFR ( Amer) > 60 07/25/18 06:19 Est GFR (Non-Af Amer) > 60 07/25/18 06:19 POC Glucose (mg/dL) 113 mg/dL (65-110) H 07/24/18 06:35 Random Glucose 112 mg/dL (65-105) H 07/25/18 06:19 Calcium 9.3 mg/dl (8.6-10.4) 07/25/18 06:19 Phosphorus 3.8 mg/dL (2.5-4.5) 07/24/18 07:28 Magnesium 2.1 mg/dL (1.6-2.3) 07/24/18 07:28 Total Bilirubin 0.5 mg/dL (0.2-1.3) 07/25/18 06:19 AST 21 U/L (14-36) 07/25/18 06:19 ALT 9 U/L (9-52) 07/25/18 06:19 Alkaline Phosphatase 91 U/L (38-126) 07/25/18 06:19 Lactate Dehydrogenase 312 U/L (313-618) L 07/24/18 07:28 Total Protein 6.6 g/dL (6.3-8.3) 07/25/18 06:19 Albumin 3.6 g/dL (3.5-5.0) 07/25/18 06:19 Globulin 3.0 gm/dL (2.2-3.9) 07/25/18 06:19 Albumin/Globulin Ratio 1.2 (1.0-2.1) 07/25/18 06:19 Amylase 68 U/L (30-110) 07/24/18 07:28 Lipase 349 U/L (23-300) H 07/24/18 07:28 Venous Blood Potassium 3.6 mmol/L (3.6-5.2) 07/23/18 22:05 Urine Color Straw (YELLOW) 07/23/18 22:07 Urine Clarity Clear (Clear) 07/23/18 22:07 Urine pH 5.0 (5.0-8.0) 07/23/18 22:07 Ur Specific [place] 1.004 (1.003-1.030) 07/23/18 22:07 Urine Protein Negative mg/dL (NEGATIVE) 07/23/18 22:07 Urine Glucose (UA) Normal mg/dL (Normal) 07/23/18 22:07 Urine Ketones Negative mg/dL (NEGATIVE) 07/23/18 22:07 Urine Blood 1+ (NEGATIVE) H 07/23/18 22:07 Urine Nitrate Negative (NEGATIVE) 07/23/18 22:07 Urine Bilirubin Negative (NEGATIVE) 07/23/18 22:07 Urine Urobilinogen Normal mg/dL (0.2-1.0) 07/23/18 22:07 Ur Leukocyte Esterase Neg [place]/uL (Negative) 07/23/18 22:07 Urine WBC (Auto) < 1 /hpf (0-5) 07/23/18 22:07 Urine RBC (Auto) 1 /hpf (0-3) 07/23/18 22:07 Ur Squamous Epith Cells < 1 /hpf (0-5) 07/23/18 22:07 Urine HCG, Qual Negative (NEGATIVE) 07/23/18 22:07 Hepatitis A IgM Ab Negative (NEGATIVE) 07/24/18 11:15 Hep Bs Antigen Negative (NEGATIVE) 07/24/18 11:15 Hep B Core IgM Ab Negative (NEGATIVE) 07/24/18 11:15 Hepatitis C Antibody Negative (NEGATIVE) 07/24/18 11:15 HIV 1&2 Antibody Screen Reactive (NEGATIVE) 07/24/18 11:15 Discharge Exam - Head Exam Head Exam: ATRAUMATIC, NORMOCEPHALIC Discharge Plan - Follow Up Plan Condition: GUARDED Disposition: HOME/ ROUTINE Instructions: Smoking: Not Just Harmful to Your Lungs and Heart, Pancreatitis (DC), Quitting Smoking, Gallstones (DC) Referrals: Chao Ludwig [Staff Provider] - Serg Griggs MD [Staff Provider] -
--- NOTE | 2018-07-25 16:52 | CP.PCM.PN ---
<AlvaradoJoaquin - Last Filed: 07/25/18 17:03> Subjective - Date & Time of Evaluation Date of Evaluation: 07/25/18 Time of Evaluation: 16:49 - Subjective Subjective: HOSPITALIST SERVICE Pt s/e at bedside. Pt reports improvement of abd pain however feels minor discomfort now that she ate soup. Pt is going for sx tmrw w/ Dr Griggs, she understands severity of condition, agrees w/ plan. joão CP SOB FC [place] Objective - Vital Signs/Intake and Output Vital Signs (last 24 hours): Temp Pulse Resp BP Pulse Ox 97.9 F 65 20 148/84 98 07/25/18 08:00 07/25/18 08:00 07/25/18 08:00 07/25/18 08:00 07/25/18 08:00 Intake and Output: 07/25/18 07/25/18 06:59 18:59 Intake Total 1000 1050 Balance 1000 1050 - Medications Medications: Current Medications Sodium Chloride (Sodium Chloride 0.9%) 1,000 mls @ 125 mls/hr IV .Q8H [facility] Last Admin: 07/25/18 12:17 Dose: Not Given Piperacillin Sod/Tazobactam Sod (Zosyn 3.375 Gm Iv Premix) 3.375 gm in 50 mls @ 100 mls/hr IVPB Q6H [facility]; Protocol Last Admin: 07/25/18 14:28 Dose: 100 mls/hr Pantoprazole Sodium (Protonix Inj) 40 mg IVP DAILY [facility] Last Admin: 07/25/18 10:35 Dose: 40 mg - Labs Labs: 07/25/18 06:19 07/25/18 06:19 PT 11.2 SECONDS (9.7-12.2) 07/23/18 21:59 INR 1.0 07/23/18 21:59 APTT 28 SECONDS (21-34) 07/23/18 21:59 - Additional Findings Additional findings: - Constitutional Appears: Non-toxic, No Acute Distress - Head Exam Head Exam: ATRAUMATIC, NORMOCEPHALIC - Eye Exam Eye Exam: EOMI - ENT Exam ENT Exam: Mucous Membranes Moist - Respiratory Exam Respiratory Exam: NORMAL BREATHING PATTERN - Cardiovascular Exam Cardiovascular Exam: REGULAR RHYTHM - GI/Abdominal Exam GI & Abdominal Exam: Soft, Tenderness (epigastric/RUQ) mild upon deep palptation - Neurological Exam Neurological Exam: Alert, Awake, Oriented x3 - Psychiatric Exam Psychiatric exam: Normal Affect, Normal Mood, disagreeable at times - Skin Skin Exam: Dry, Intact, Normal Color, Warm Assessment and Plan - Assessment and Plan (Free Text) Assessment: 53yo morbidly obese F PMH HIV, HTN, OA, gastritis, recent H. pylori diagnosis admitted for epigastric and RUQ pain. Plan: Epigastric Pain Gastritis with H. pylori infection vs. Pancreatitis lipase OA 787 Pepcid 20mg IVP, Morphine 2mg IVP, Zosyn 3.375g IVPB, 2L NS given in ED - HIDA pos for cholecystitis, no filling after 3hrs - GenSx notifyed, : for cholecystectomy tomorrow - Lipase trending down - 24hr neg Blood Cx - Tramadol 50mg po TID prn - GI consulted: Dr. Ludwig - meliton appreciated RUQ pain Cholelithiasis - Pos HIDA scan - Gen Surg consulted: Dr. Griggs - help appreciated HIV Patient takes 1 tab per day for HIV, but is unsure of name or dosing. She has been controlled since being diagnosed 6 years ago - Called pharmacy: pt was d/c on Stribild, now on Biktarvy since may- known side effect is pancreatitis - f/u CD4 count. WBC 6.8 OA Hypertension Patient denies being on any home medications BP has been stable since admission - monitor vitals Osteoarthritis of R knee - hold home Tylenol - Tramadol 50mg po TID prn d/c'd PPx - DVT: SCDs - GI: PPI - Diet: NPO except meds past midnight - IVF: NS@125 DISPO: for lap ai tmrw w/ Indu, f/u recs <Kathryn Glasgow V - Last Filed: 07/25/18 23:25> Objective - Vital Signs/Intake and Output Vital Signs (last 24 hours): Temp Pulse Resp BP Pulse Ox 98.2 F 61 20 153/101 H 98 07/25/18 15:20 07/25/18 15:20 07/25/18 15:20 07/25/18 15:20 07/25/18 15:20 Intake and Output: 07/25/18 07/26/18 18:59 06:59 Intake Total 1050 Balance 1050 - Medications Medications: Current Medications Sodium Chloride (Sodium Chloride 0.9%) 1,000 mls @ 125 mls/hr IV .Q8H [facility] Last Admin: 07/25/18 21:00 Dose: Not Given Piperacillin Sod/Tazobactam Sod (Zosyn 3.375 Gm Iv Premix) 3.375 gm in 50 mls @ 100 mls/hr IVPB Q6H [facility]; Protocol Last Admin: 07/25/18 20:21 Dose: 100 mls/hr Pantoprazole Sodium (Protonix Inj) 40 mg IVP DAILY [facility] Last Admin: 07/25/18 10:35 Dose: 40 mg - Labs Labs: 07/25/18 06:19 07/25/18 06:19 PT 11.2 SECONDS (9.7-12.2) 07/23/18 21:59 INR 1.0 07/23/18 21:59 APTT 28 SECONDS (21-34) 07/23/18 21:59 Attending/Attestation - Attestation I have personally seen and examined this patient.: Yes I have fully participated in the care of the patient.: Yes I have reviewed all pertinent clinical information, including history, physical exam and plan: Yes Notes (Text): Patient seen, examined, and case discussed with day-time resident. Patient seen this afternoon with resident. Patient's diet advanced from NPO to liquid. Patient noted after liquid diet she felt mild discomfort. Patient was seen by surgery team shortly after, patient is amenable for surgery intervention for acute cholecystitis given positive HIDA. Patient placed on Zosyn this morning. Patient pending ekg and chest xray for medical optimization prior to OR. Preop/intraoperative/postoperative management per surgery Assessment/Plan 1. Epigastric Pain Elevated Lipase Acute Cholecystitis Assessment/Plan * GI Consult (Dr. Ludwig) guest relations representative help appreciated * General surgery (Dr. Griggs) guest relations representative help appreciated * Lipase OA 787 * downtrending * Abdominal US (07/24/18): hepatomegaly; cholelithiasis, gallbladder is contracted. Calcification of the gallbladder wall/porcelian gallbladder cannot be excluded. b/l L5 spondylosis. * CT abdomen/pelvis (07/24/18): prominent liver ~18.3 cm in length. Increased echogenicity of the hepatic parenchymal cortex. Contracted gallbladder with cholelithiasis. Negative sonographic Goff's sign. Limited visualized of the pancreas. * HIDA (07/24/18): abnromal HIDA, cystic duct is occluded, presumptive evidence of acute cholecystitis. * Tramadol held * NPO * Patient is scheduled for cholecysectomy for acute cholecystitis given positive HIDA; patient is on empiric antibiotic coverage * Surgery and anesthesia to discuss risks and benefits of procedure prior to OR, respectively. Pending EKG and chest xray for medical optimization. 2. Known history of HIV Assessment/Plan * Diagnosed 6 years ago; follow-up with outpatient infectious disease * Recently changed from Stribild to Biktarvy * HIV screening positive; pending lymphocyte subset 3 for CD4 count 3. Hypertension Assessment/Plan * Patient denies being on any home medications * monitor vital signs 4. Osteoarthritis of R knee Assessment/Plan * hold home Tylenol * held Tramadol 50mg po TID prn on admission 5. PPx * DVT ppx: SCDs * GI: PPI * Diet: NPO except meds * IVF: NS@125 DISPO: Patient is scheduled for cholecysectomy for acute cholecystitis given positive HIDA for tomorrow; patient is on empiric antibiotic coverage * Surgery and anesthesia to discuss risks and benefits of procedure prior to OR, respectively. Pending EKG and chest xray for medical optimization.
[2018-07-26] MEDS: Piperacill/Tazo 3.375gm in Dex 3.375 GM/50 ML BAG IVPB SCH ×4 (02:24→19:35)
[2018-07-26] MEDS: Sodium Chloride 0.9% 1,000 ML IV SCH ×3 (05:00→21:36)
[2018-07-26 07:16] LABS: BASO % 0.2 % (0.0-2.0); EOS # 0.2 K/uL (0.0-0.7); EOS % 5.6 % (0.0-4.0); HEMOGLOBIN 12.9 g/dL (11.0-16.0); LYMPH # 0.8 K/uL (1.0-4.3); LYMPH % 21.7 % (20.0-40.0); MEAN CELL VOLUME 88.5 fL (81.0-99.0); MEAN CORPUSCULAR HEMOGLOBIN 30.2 pg (27.0-31.0); MEAN CORPUSCULAR HGB CONC 34.2 g/dL (33.0-37.0); MEAN PLATELET VOLUME 7.7 fL (7.2-11.7); MONO # 0.6 K/uL (0.0-0.8); MONO % 16.3 % (0.0-10.0); NEUT # 2.1 K/uL (1.8-7.0); NEUT % 56.2 % (50.0-75.0); PROTHROMBIN TIME 11.2 SECONDS (9.7-12.2); RBC 4.27 Mil/uL (3.80-5.20); WHITE BLOOD COUNT 3.8 K/uL (4.8-10.8)
--- NOTE | 2018-07-26 07:21 | CP.PCM.PN ---
<Joaquin Childers - Last Filed: 07/26/18 17:09> Subjective - Date & Time of Evaluation Date of Evaluation: 07/26/18 Time of Evaluation: 07:21 - Subjective Subjective: HOSPITALIST SERVICE Pt s/e at bedside, reports no acute events overnight, pt is till NPO and hungry. Pt has no new symptoms of abdominal paiun, pt is concerned about possible sx complications but understands benefits outweigh risk. agrees with plan Objective - Vital Signs/Intake and Output Vital Signs (last 24 hours): Temp Pulse Resp BP Pulse Ox 97.9 F 70 20 128/81 100 07/26/18 00:00 07/26/18 00:00 07/26/18 00:00 07/26/18 00:00 07/26/18 00:00 - Medications Medications: Current Medications Sodium Chloride (Sodium Chloride 0.9%) 1,000 mls @ 125 mls/hr IV .Q8H [facility] Last Admin: 07/25/18 21:00 Dose: Not Given Piperacillin Sod/Tazobactam Sod (Zosyn 3.375 Gm Iv Premix) 3.375 gm in 50 mls @ 100 mls/hr IVPB Q6H [facility]; Protocol Last Admin: 07/25/18 20:21 Dose: 100 mls/hr Pantoprazole Sodium (Protonix Inj) 40 mg IVP DAILY [facility] Last Admin: 07/25/18 10:35 Dose: 40 mg - Labs Labs: 07/25/18 06:19 07/25/18 06:19 PT 11.2 SECONDS (9.7-12.2) 07/26/18 06:50 INR 1.0 07/26/18 06:50 APTT 29 SECONDS (21-34) 07/26/18 06:50 Assessment and Plan - Assessment and Plan (Free Text) Assessment: - Constitutional Appears: Non-toxic, No Acute Distress - Head Exam Head Exam: ATRAUMATIC, NORMOCEPHALIC - Eye Exam Eye Exam: EOMI - ENT Exam ENT Exam: Mucous Membranes Moist - Respiratory Exam Respiratory Exam: NORMAL BREATHING PATTERN - Cardiovascular Exam Cardiovascular Exam: REGULAR RHYTHM - GI/Abdominal Exam GI & Abdominal Exam: Soft, Tenderness (epigastric/RUQ) mild upon deep palptation - Neurological Exam Neurological Exam: Alert, Awake, Oriented x3 - Psychiatric Exam Psychiatric exam: Normal Affect, Normal Mood, disagreeable at times - Skin Skin Exam: Dry, Intact, Normal Color, Warm 53yo morbidly obese F PMH HIV, HTN, OA, gastritis, recent H. pylori diagnosis admitted for epigastric and RUQ pain. Plan: Epigastric Pain Gastritis with H. pylori infection vs. Pancreatitis lipase OA 787 Pepcid 20mg IVP, Morphine 2mg IVP, Zosyn 3.375g IVPB, 2L NS given in ED - HIDA pos for cholecystitis, no filling after 3hrs - GenSx notifyed, : today had robotic cholecystectomy - Lipase trending down - 24hr neg Blood Cx - Tramadol 50mg po TID prn - GI consulted: Dr. Ludwig - meliton appreciated RUQ pain Cholelithiasis - Pos HIDA scan - Gen Surg consulted: Dr. Griggs - help appreciated HIV Patient takes 1 tab per day for HIV, but is unsure of name or dosing. She has been controlled since being diagnosed 6 years ago - Called pharmacy: pt was d/c on Stribild, now on Biktarvy since may- known side effect is pancreatitis - f/u CD4 count. WBC 6.8 OA Hypertension Patient denies being on any home medications BP has been stable since admission - monitor vitals Osteoarthritis of R knee - hold home Tylenol - Tramadol 50mg po TID prn d/c'd PPx - DVT: SCDs - GI: PPI - Diet: NPO except meds - IVF: NS@125 DISPO:had lap ai w/ Indu, f/u recs, monitor, see when to advance diet and plan for d/c <Kathryn Glasgow V - Last Filed: 07/27/18 14:32> Objective - Vital Signs/Intake and Output Vital Signs (last 24 hours): Temp Pulse Resp BP Pulse Ox 97.3 F L 73 20 139/76 96 07/27/18 08:00 07/27/18 13:16 07/27/18 08:00 07/27/18 13:16 07/27/18 08:00 - Medications Medications: Current Medications Acetaminophen (Tylenol 325mg Tab) 650 mg PO Q6 PRN PRN Reason: Pain, moderate (4-7) Last Admin: 07/27/18 10:04 Dose: 650 mg Piperacillin Sod/Tazobactam Sod (Zosyn 3.375 Gm Iv Premix) 3.375 gm in 50 mls @ 100 mls/hr IVPB Q6H [facility]; Protocol Last Admin: 07/27/18 13:34 Dose: 100 mls/hr Pantoprazole Sodium (Protonix Inj) 40 mg IVP DAILY [facility] Last Admin: 07/27/18 10:03 Dose: 40 mg - Labs Labs: 07/27/18 07:15 07/27/18 07:15 PT 11.2 SECONDS (9.7-12.2) 07/26/18 06:50 INR 1.0 07/26/18 06:50 APTT 29 SECONDS (21-34) 07/26/18 06:50 Attending/Attestation - Attestation I have personally seen and examined this patient.: Yes I have fully participated in the care of the patient.: Yes I have reviewed all pertinent clinical information, including history, physical exam and plan: Yes Notes (Text): This is a late computer entry for July 26, 2018. Patient seen, examined, case discussed with medical aides teacher. Initially attempted to see patient in the morning however patient is in the OR for cholecystectomy with Dr. Salomon. Patient seen post OR with family present at bedside in the evening. Patient appears to be tolerating diet advised to eat slowly. We will continue to monitor patient postoperatively. Noted on operative note acute cholecystitis gallstone pancreatitis. Patient has been on Zosyn since July 24, 2018. Noted patient blood pressure is elevated unclear if it is related to surgical pain or not. We will continue to monitor blood pressure. And continue IV fluids.
[2018-07-26 08:02] LABS: ALB/GLOB RATIO 1.2 (1.0-2.1); ALBUMIN 3.6 g/dL (3.5-5.0); ALT/SGPT 11 U/L (9-52); AST/SGOT 20 U/L (14-36); BLOOD UREA NITROGEN 11 mg/dL (7-17); CALCIUM 9.3 mg/dl (8.6-10.4); GFR NON-AFRICAN AMERICAN > 60; LIPASE 237 U/L (23-300)
--- NOTE | 2018-07-26 08:34 | RAD ---
Date of service: 07/26/2018 HISTORY: baseline prior to OR COMPARISON: Chest radiographs 01/09/2018. TECHNIQUE: 1 view obtained. FINDINGS: LUNGS: No active pulmonary disease. PLEURA: No significant pleural effusion identified, no pneumothorax apparent. CARDIOVASCULAR: No aortic atherosclerotic calcification present. Normal cardiac size. No pulmonary vascular congestion. OSSEOUS STRUCTURES: No significant abnormalities. VISUALIZED UPPER ABDOMEN: Normal. OTHER FINDINGS: None. IMPRESSION: No interval acute cardiopulmonary disease appreciated.
--- NOTE | 2018-07-26 09:26 | CP.PCM.PCO ---
Addendum Addendum: 07/26/18 09:25 EKG and CXR reviewed, no signs of acute changes Pt medically optimized for surgical intervention CK PGY1
[2018-07-26] MEDS ORDERED: Midazolam 2 MG/2 ML VIAL ONE (10:06)
[2018-07-26] MEDS ORDERED: Propofol 10 mg/ml Inj (20 ML) ONE (10:06)
[2018-07-26] MEDS ORDERED: Sodium Chloride 0.9% 40 ML IV ONE (10:09)
[2018-07-26] MEDS ORDERED: Lidocaine 4% (Laryng-O-Jet) Kit MM ONE (10:31)
[2018-07-26] MEDS: Lidocaine/Epinephrine 1% 1:100000 10 ML IJ ONE ×2 (10:46→10:54)
[2018-07-26] MEDS: Bupivacaine 0.25% 20 ML INJ IJ ONE ×2 (10:46→10:54)
[2018-07-26] MEDS: Bupivacaine Liposomal Inj 20 ml INFIL ONE ×2 (10:55→12:11)
[2018-07-26] MEDS ORDERED: Morphine 4 MG/ML VIAL ONE (12:43)
--- NOTE | 2018-07-26 12:53 | PCM.SURG1 ---
Surgeon's Initial Post Op Note - Surgeon's Notes Surgeon: Dr. Griggs Clinical Program Manager: PGY2 Type of Anesthesia: General Endo Pre-Operative Diagnosis: Gallstone Pancreatitis Operative Findings: Inflammed gallbladder, Stones in neck of GB. Dialated Cystic duct. for details see op note Post-Operative Diagnosis: Gallstone pancreatitis, Acute on chronic Cholecystitis Operation Performed: Robotic Cholecystectomy Specimen/Specimens Removed: 1. Gallbladder Estimated Blood Loss: EBL {In ML}: 5 Drains Used: No Drains Post-Op Condition: Fair Date of Surgery/Procedure: 07/26/18 Time of Surgery/Procedure: 12:53
[2018-07-26] MEDS: HYDROmorphone 0.5 mg/0.5 ml ISec IVP PRN ×2 (13:01→13:22)
[2018-07-26] MEDS ORDERED: Lactated Ringer's 1,000 ML IV ONE (13:45)
[2018-07-26 17:17] VITALS: RESP 20
--- NOTE | 2018-07-27 00:20 | OP ---
PROCEDURE DATE: 07/26/2018 PREOPERATIVE DIAGNOSES: 1. Gallstone pancreatitis. 2. Cholelithiasis. 3. Human immunodeficiency virus. POSTOPERATIVE DIAGNOSES: 1. Gallstone pancreatitis. 2. Cholelithiasis. 3. Human immunodeficiency virus. PROCEDURES DONE: 1. Robotic cholecystectomy. 2. Robotic extensive lysis of adhesion and enterolysis. 3. Laparoscopic bilateral transversus abdominis plane block placement. SURGEON: Serg Griggs MD ASSISTANTS: ROBERTA Tillman and Hector PGY-1 resident ANESTHESIA: General endotracheal tube anesthesia. ESTIMATED BLOOD LOSS: Around 20 mL. DRAIN: None. PATHOLOGY: Gallbladder with gallstone sent to the Pathology. COMPLICATIONS: None. INTRAOPERATIVE FINDINGS: The patient had extensive postinflammatory adhesions of the right upper quadrant, and the patient had a chronic cholelithiasis with a contracted gallbladder with multiple stones. The patient also had dilated cystic duct. DESCRIPTION OF PROCEDURE: On intraoperative steps, this is a 53-year-old female who was diagnosed with gallstone pancreatitis. The patient was consented for robotic cholecystectomy, possible open after the improvement of pancreatitis. The patient was brought to the OR, placed supine on the operating room table. After induction of the anesthesia, the abdomen was prepped and draped in the usual sterile fashion. A supraumbilical incision was made using open technique. Peritoneal cavity was entered. Pneumo was created. Another 3-8 mm port was placed in the upper abdomen. The robot was brought in. Camera arm as well as arm-1 and arm-2 were docked. The gallbladder appeared to be extensively adhered to the colon, omentum, and the duodenum. First, extensive lysis of adhesion was done. The patient had a contracted gallbladder with multiple stones. The Calot's triangle appeared to be extremely inflamed, thickened, and edematous. The Calot's triangle dissection was done. The intraoperative Firefly was used to identify the ductal anatomy. There was only one duct identified. Now, decision was made to do a top down approach. The gallbladder was dissected from the fundus down. The Calot's triangle dissection was done posteriorly to identify the cystic duct and cystic artery. Again, the Firefly was used. There was only one duct that was going inside the gallbladder that was completely freed from the liver. Now, the cystic artery and cystic duct were clipped at three places and cut in between two clips in the gallbladder. The gallbladder was taken in an EndoCatch bag, taken out through the umbilical port site and then sent off the table for the pathology. There was a proper hemostasis in each and every part of the procedure as above. The gallbladder was sent off the table for the pathology. The bilateral TAP block was given. A 30:30 mL of Exparel was injected into the transverse abdominis muscle plane area bilaterally and after proper TAP block, all the ports were taken out under vision. Pneumo was deflated. The umbilical port site was closed in two layers, the fascia with 0 Vicryl interrupted suture and skin with a 4-0 Monocryl. During the procedure due to the difficulty with dissecting the Calot's triangle, another 12-mm port was placed to help with dissection and suction irrigation as well as for the retraction of the duodenum as well as pancreas. The patient was extubated in the OR and sent to the postanesthesia care unit in stable condition. Serg Griggs MD
[2018-07-27] MEDS: Piperacill/Tazo 3.375gm in Dex 3.375 GM/50 ML BAG IVPB SCH ×3 (02:49→13:34)
[2018-07-27] MEDS: Sodium Chloride 0.9% 1,000 ML IV SCH (05:03)
[2018-07-27 07:30] LABS: BASO % 0.2 % (0.0-2.0); EOS # 0.2 K/uL (0.0-0.7); EOS % 3.1 % (0.0-4.0); LYMPH # 0.9 K/uL (1.0-4.3); LYMPH % 15.6 % (20.0-40.0); MEAN CELL VOLUME 89.3 fL (81.0-99.0); MEAN CORPUSCULAR HEMOGLOBIN 29.7 pg (27.0-31.0); MEAN CORPUSCULAR HGB CONC 33.3 g/dL (33.0-37.0); MEAN PLATELET VOLUME 7.8 fL (7.2-11.7); MONO # 0.7 K/uL (0.0-0.8); NEUT # 3.7 K/uL (1.8-7.0); NEUT % 68.1 % (50.0-75.0); NRBC % 0.1 % (0.0-2.0); RBC 4.04 Mil/uL (3.80-5.20); RED CELL DISTRIBUTION WIDTH 13.9 % (11.5-14.5); WHITE BLOOD COUNT 5.5 K/uL (4.8-10.8)
[2018-07-27 07:51] LABS: ALB/GLOB RATIO 1.3 (1.0-2.1); ALBUMIN 3.4 g/dL (3.5-5.0); ALT/SGPT 43 U/L (9-52); AST/SGOT 60 U/L (14-36); BLOOD UREA NITROGEN 8 mg/dL (7-17); CALCIUM 8.5 mg/dl (8.6-10.4); GFR NON-AFRICAN AMERICAN > 60
--- NOTE | 2018-07-27 12:51 | CARD ---
APPROVED REPORT Date of service: 07/26/2018 EKG Measurement Heart [id number] <Conclusion> Normal sinus rhythm Septal infarct, age undetermined Abnormal ECG
--- NOTE | 2018-07-27 13:19 | CP.PCM.DIS ---
<Joaquin Childers - Last Filed: 07/27/18 15:14> Provider - Provider Date of Admission: 07/25/18 16:30 Attending physician: Kathryn Glasgow DO Consults: 07/24/18 01:45 Gastroenterology Consult Routine Comment: Consulting Provider: Chao Ludwig Consulting Physician: Chao Ludwig Reason for Consult: Hx H. pylori, cholecystitis General Surgery Consult Routine Comment: Consulting Provider: Serg Griggs Consulting Physician: Serg Griggs Reason for Consult: + Goff's, cholecystitis Time Spent in preparation of Discharge (in minutes): 45 Diagnosis - Discharge Diagnosis (1) HIV (human immunodeficiency virus infection) Status: Chronic (2) Pancreatitis Status: Acute (3) Abdominal pain Status: Resolved (4) Alcohol abuse Status: Chronic (5) Nausea Status: Resolved Hospital Course - Lab Results Lab Results: Micro Results 07/23/18 23:09 Blood Blood Culture - Preliminary NO GROWTH AFTER 3 DAYS 07/23/18 23:09 Blood Blood Culture - Preliminary NO GROWTH AFTER 3 DAYS Most Recent Lab Values WBC 5.5 K/uL (4.8-10.8) 07/27/18 07:15 RBC 4.04 Mil/uL (3.80-5.20) 07/27/18 07:15 Hgb 12.0 g/dL (11.0-16.0) 07/27/18 07:15 Hct 36.1 % (34.0-47.0) 07/27/18 07:15 MCV 89.3 fL (81.0-99.0) 07/27/18 07:15 MCH 29.7 pg (27.0-31.0) 07/27/18 07:15 MCHC 33.3 g/dL (33.0-37.0) 07/27/18 07:15 RDW 13.9 % (11.5-14.5) 07/27/18 07:15 Plt Count 134 K/uL (130-400) 07/27/18 07:15 MPV 7.8 fL (7.2-11.7) 07/27/18 07:15 Neut % (Auto) 68.1 % (50.0-75.0) 07/27/18 07:15 Lymph % (Auto) 15.6 % (20.0-40.0) L 07/27/18 07:15 Harrison % (Auto) 13.0 % (0.0-10.0) H 07/27/18 07:15 Eos % (Auto) 3.1 % (0.0-4.0) 07/27/18 07:15 Baso % (Auto) 0.2 % (0.0-2.0) 07/27/18 07:15 Neut # (Auto) 3.7 K/uL (1.8-7.0) 07/27/18 07:15 Lymph # (Auto) 0.9 K/uL (1.0-4.3) L 07/27/18 07:15 Harrison # (Auto) 0.7 K/uL (0.0-0.8) 07/27/18 07:15 Eos # (Auto) 0.2 K/uL (0.0-0.7) 07/27/18 07:15 Baso # (Auto) 0.0 K/uL (0.0-0.2) 07/27/18 07:15 PT 11.2 SECONDS (9.7-12.2) 07/26/18 06:50 INR 1.0 07/26/18 06:50 APTT 29 SECONDS (21-34) 07/26/18 06:50 pO2 39 mm/Hg (30-55) 07/23/18 22:05 VBG pH 7.37 (7.32-7.43) 07/23/18 22:05 VBG pCO2 44 mmHg (40-60) 07/23/18 22:05 VBG HCO3 24.1 mmol/L 07/23/18 22:05 VBG Total CO2 26.8 mmol/L (22-28) 07/23/18 22:05 VBG O2 Sat (Calc) 81.5 % (40-65) H 07/23/18 22:05 VBG Base Excess -0.2 mmol/L (0.0-2.0) L 07/23/18 22:05 VBG Potassium 3.6 mmol/L (3.6-5.2) 07/23/18 22:05 Sodium 139.0 mmol/l (132-148) 07/23/18 22:05 Chloride 105.0 mmol/L (98-107) 07/23/18 22:05 Glucose 110 mg/dl (65-105) H 07/23/18 22:05 Lactate 1.7 mmol/L (0.7-2.1) 07/23/18 22:05 Sodium 136 mmol/L (132-148) 07/27/18 07:15 Potassium 3.9 mmol/L (3.6-5.2) 07/27/18 07:15 Chloride 106 mmol/L (98-107) 07/27/18 07:15 Carbon Dioxide 27 mmol/L (22-30) 07/27/18 07:15 Anion Gap 7 (10-20) L 07/27/18 07:15 BUN 8 mg/dL (7-17) 07/27/18 07:15 Creatinine 0.7 mg/dL (0.7-1.2) 07/27/18 07:15 Est GFR ( Amer) > 60 07/27/18 07:15 Est GFR (Non-Af Amer) > 60 07/27/18 07:15 POC Glucose (mg/dL) 113 mg/dL (65-110) H 07/24/18 06:35 Random Glucose 118 mg/dL (65-105) H 07/27/18 07:15 Calcium 8.5 mg/dl (8.6-10.4) L 07/27/18 07:15 Phosphorus 3.9 mg/dL (2.5-4.5) 07/27/18 07:15 Magnesium 1.9 mg/dL (1.6-2.3) 07/27/18 07:15 Total Bilirubin 0.6 mg/dL (0.2-1.3) 07/27/18 07:15 AST 60 U/L (14-36) H D 07/27/18 07:15 ALT 43 U/L (9-52) 07/27/18 07:15 Alkaline Phosphatase 83 U/L (38-126) 07/27/18 07:15 Lactate Dehydrogenase 312 U/L (313-618) L 07/24/18 07:28 Total Protein 6.1 g/dL (6.3-8.3) L 07/27/18 07:15 Albumin 3.4 g/dL (3.5-5.0) L 07/27/18 07:15 Globulin 2.7 gm/dL (2.2-3.9) 07/27/18 07:15 Albumin/Globulin Ratio 1.3 (1.0-2.1) 07/27/18 07:15 Amylase 68 U/L (30-110) 07/24/18 07:28 Lipase 237 U/L (23-300) 07/26/18 06:50 Beta HCG, Quant < 2.39 mIU/ML 07/26/18 06:50 Venous Blood Potassium 3.6 mmol/L (3.6-5.2) 07/23/18 22:05 Urine Color Straw (YELLOW) 07/23/18 22:07 Urine Clarity Clear (Clear) 07/23/18 22:07 Urine pH 5.0 (5.0-8.0) 07/23/18 22:07 Ur Specific [place] 1.004 (1.003-1.030) 07/23/18 22:07 Urine Protein Negative mg/dL (NEGATIVE) 07/23/18 22:07 Urine Glucose (UA) Normal mg/dL (Normal) 07/23/18 22:07 Urine Ketones Negative mg/dL (NEGATIVE) 07/23/18 22:07 Urine Blood 1+ (NEGATIVE) H 07/23/18 22:07 Urine Nitrate Negative (NEGATIVE) 07/23/18 22:07 Urine Bilirubin Negative (NEGATIVE) 07/23/18 22:07 Urine Urobilinogen Normal mg/dL (0.2-1.0) 07/23/18 22:07 Ur Leukocyte Esterase Neg Deena/uL (Negative) 07/23/18 22:07 Urine WBC (Auto) < 1 /hpf (0-5) 07/23/18 22:07 Urine RBC (Auto) 1 /hpf (0-3) 07/23/18 22:07 Ur Squamous Epith Cells < 1 /hpf (0-5) 07/23/18 22:07 Urine HCG, Qual Negative (NEGATIVE) 07/23/18 22:07 Hepatitis A IgM Ab Negative (NEGATIVE) 07/24/18 11:15 Hep Bs Antigen Negative (NEGATIVE) 07/24/18 11:15 Hep B Core IgM Ab Negative (NEGATIVE) 07/24/18 11:15 Hepatitis C Antibody Negative (NEGATIVE) 07/24/18 11:15 HIV-1 Antibody (EIA) Positive (Negative) H 07/24/18 14:43 HIV-2 Antibody (EIA) Negative (Negative) 07/24/18 14:43 HIV 1&2 Antibody Screen Reactive (NEGATIVE) 07/24/18 11:15 HIV 1&2 Antibody Reactive (Nonreactive) H 07/24/18 14:43 Blood Type A POSITIVE 07/26/18 06:50 Antibody Screen Negative 07/26/18 06:50 - Hospital Course Hospital Course: Ms. Galan is a Romanian speaking 53yo obese female with a PMH of HIV, hypertension, osteoarthritis, gastritis, and recent H. pylori diagnosis here today for worsening abdominal pain. She has had episodes of epigastric pain since 3 weeks ago when diagnosed with stomach infection. The omeprazole and clarithromycin she was given helped with that pain that has ebbed and flowed since diagnosis. The stabbing pain is 8/10 at worst and can go away completely after medication. The localized pain has worsened over the last week, and especially over the last 2 days when a RUQ pain developed. She states it is two separate pains, but in tandem, worsens both. The pressure pain on her RUQ radiates around her flank and makes it difficult to take deep breaths. At worst it is a 6/10 and does not drop entirely away. Both abdominal pains are worse at night and worsened about 30 minutes after eating. Denies fever, change in weight , chest pain, nausea, vomiting, change in appetite, constipation, diarrhea. She admits to taking OTC Tylenol for the pain without relief. She averages about 5 tablets of Extra Strength Tylenol over the course of the day for the last month. PMH: HIV, HTN, OA, gastritis, H. pylori Med: unknown ([facility]: [phone]). 1 tab HIV Rx po daily, 1 tab PPI po daily, 1 tab Clarythromycin po daily, OTC Tylenol PRN All: NKDA PSxHx: tonsillectomy@8yo FamHx: Father - MT@78, lung CA, MGM - stomach CA SocHx: smokes 7 cigs/day since 19yo, weekend drinker: 4-5 drinks/day since 19yo, denies illicit drug use. Lives with daughter, works at [employer]: Menopause within last year PMD: Dr. Boyd CM: [facility] [phone] ext [phone] Pt was admitted for pancreatitis found to have elevated lipases that treneded down over admission. HIDA scan confirmed acute cholecystitis and gallstone. GenSx Dr Griggs did a robotic lap ai, pt symptoms improved, tolerated diet. Pt to follow up with Dr Boyd regarding DAMICO therapy Biktarvy- possible side effect of pancreatitis. Pt was dc home on Augmentin 875 for 4 days and Bacid for 10 days Gastritis with H. pylori infection vs. Pancreatitis lipase OA 787 Pepcid 20mg IVP, Morphine 2mg IVP, Zosyn 3.375g IVPB, 2L NS given in ED - HIDA pos for cholecystitis, no filling after 3hrs - GenSx notifyed, : today had robotic cholecystectomy - Lipase trending down - 24hr neg Blood Cx - Tramadol 50mg po TID prn - GI consulted: Dr. Ludwig - help appreciated RUQ pain Cholelithiasis - Pos HIDA scan - Gen Surg consulted: Dr. Griggs - help appreciated HIV Patient takes 1 tab per day for HIV, but is unsure of name or dosing. She has been controlled since being diagnosed 6 years ago - Called pharmacy: pt was d/c on Stribild, now on Biktarvy since may- known side effect is pancreatitis - f/u CD4 count. WBC 6.8 OA Hypertension Patient denies being on any home medications BP has been stable since admission - monitor vitals Osteoarthritis of R knee - hold home Tylenol - Tramadol 50mg po TID prn d/c'd PPx - DVT: SCDs - GI: PPI - Diet: NPO except meds - IVF: NS@125 this is a summary please refer to [facility] for complete records Discharge Exam - Head Exam Head Exam: ATRAUMATIC, NORMOCEPHALIC - Additional Findings Additional findings: - Constitutional Appears: Non-toxic, No Acute Distress - Head Exam Head Exam: ATRAUMATIC, NORMOCEPHALIC - Eye Exam Eye Exam: EOMI - ENT Exam ENT Exam: Mucous Membranes Moist - Respiratory Exam Respiratory Exam: NORMAL BREATHING PATTERN - Cardiovascular Exam Cardiovascular Exam: REGULAR RHYTHM - GI/Abdominal Exam GI & Abdominal Exam: Soft, Tenderness (epigastric/RUQ) mild upon deep palptation - Neurological Exam Neurological Exam: Alert, Awake, Oriented x3 - Psychiatric Exam Psychiatric exam: Normal Affect, Normal Mood, disagreeable at times - Skin Skin Exam: Dry, Intact, Normal Color, Warm Discharge Plan - Discharge Medications Prescriptions: Acidoph/L.bulg/Bif.b/S.thermop [Bacid Caplet] 1 each PO BID #20 tablet Amoxicillin/Clavulanate [Augmentin 875 MG-125 MG] 1 tab PO BID #8 tab Famotidine [Pepcid] 20 mg PO DAILY #7 tab RX: Ibuprofen [Motrin Tab] 600 mg PO Q8 #15 tab - Follow Up Plan Condition: STABLE Disposition: HOME/ ROUTINE Instructions: Smoking: Not Just Harmful to Your Lungs and Heart, Pancreatitis (DC), Cholecystectomy, Laparoscopic Surgery, Quitting Smoking, Gallstones (DC), Amoxicillin and Clavulanate Additional Instructions: Pt is to be discharged home Please continue your home medications as prescribed, Please Take the Augmentin antibiotic as prescribed for 4 days Please take the bacid tabs twice a day for 10 days Please follow up with Dr Pitts within 7 days of discharge Please follow up with Dr Smith within 7 days regarding your pancreatitis possibly related to Biktarvy Por favor contine mele medicamentos caseros segn lo prescrito, Por favor, tome el antibitico Augmentin segn lo prescrito por 4 arenas Por favor, tome las pestaas de bacid dos veces al da chantale 10 arenas Por favor freya un seguimiento con el Dr. Pitts dentro de los 7 arenas posteriores al amber. Por favor freya un seguimiento con el Dr. Smith dentro de los 7 arenas con respecto a espinoza pancreatitis posiblemente relacionada con Biktarvy Referrals: Chao Ludwig [Staff Provider] - Pamela Boyd MD [Medical Doctor] - Serg Griggs MD [Staff Provider] - <Kathryn Glasgow V - Last Filed: 07/28/18 11:02> Provider - Provider Date of Admission: 07/25/18 16:30 Attending physician: Kathryn Glasgow DO Consults: 07/24/18 01:45 Gastroenterology Consult Routine Comment: Consulting Provider: Chao Ludwig Consulting Physician: Chao Ludwig Reason for Consult: Hx H. pylori, cholecystitis General Surgery Consult Routine Comment: Consulting Provider: Serg Griggs Consulting Physician: Serg Griggs Reason for Consult: + Goff's, cholecystitis Hospital Course - Lab Results Lab Results: Micro Results 07/23/18 23:09 Blood Blood Culture - Preliminary NO GROWTH AFTER 3 DAYS 07/23/18 23:09 Blood Blood Culture - Preliminary NO GROWTH AFTER 3 DAYS Most Recent Lab Values WBC 5.5 K/uL (4.8-10.8) 07/27/18 07:15 RBC 4.04 Mil/uL (3.80-5.20) 07/27/18 07:15 Hgb 12.0 g/dL (11.0-16.0) 07/27/18 07:15 Hct 36.1 % (34.0-47.0) 07/27/18 07:15 MCV 89.3 fL (81.0-99.0) 07/27/18 07:15 MCH 29.7 pg (27.0-31.0) 07/27/18 07:15 MCHC 33.3 g/dL (33.0-37.0) 07/27/18 07:15 RDW 13.9 % (11.5-14.5) 07/27/18 07:15 Plt Count 134 K/uL (130-400) 07/27/18 07:15 MPV 7.8 fL (7.2-11.7) 07/27/18 07:15 Neut % (Auto) 68.1 % (50.0-75.0) 07/27/18 07:15 Lymph % (Auto) 15.6 % (20.0-40.0) L 07/27/18 07:15 Harrison % (Auto) 13.0 % (0.0-10.0) H 07/27/18 07:15 Eos % (Auto) 3.1 % (0.0-4.0) 07/27/18 07:15 Baso % (Auto) 0.2 % (0.0-2.0) 07/27/18 07:15 Neut # (Auto) 3.7 K/uL (1.8-7.0) 07/27/18 07:15 Lymph # (Auto) 0.9 K/uL (1.0-4.3) L 07/27/18 07:15 Harrison # (Auto) 0.7 K/uL (0.0-0.8) 07/27/18 07:15 Eos # (Auto) 0.2 K/uL (0.0-0.7) 07/27/18 07:15 Baso # (Auto) 0.0 K/uL (0.0-0.2) 07/27/18 07:15 PT 11.2 SECONDS (9.7-12.2) 07/26/18 06:50 INR 1.0 07/26/18 06:50 APTT 29 SECONDS (21-34) 07/26/18 06:50 pO2 39 mm/Hg (30-55) 07/23/18 22:05 VBG pH 7.37 (7.32-7.43) 07/23/18 22:05 VBG pCO2 44 mmHg (40-60) 07/23/18 22:05 VBG HCO3 24.1 mmol/L 07/23/18 22:05 VBG Total CO2 26.8 mmol/L (22-28) 07/23/18 22:05 VBG O2 Sat (Calc) 81.5 % (40-65) H 07/23/18 22:05 VBG Base Excess -0.2 mmol/L (0.0-2.0) L 07/23/18 22:05 VBG Potassium 3.6 mmol/L (3.6-5.2) 07/23/18 22:05 Sodium 139.0 mmol/l (132-148) 07/23/18 22:05 Chloride 105.0 mmol/L (98-107) 07/23/18 22:05 Glucose 110 mg/dl (65-105) H 07/23/18 22:05 Lactate 1.7 mmol/L (0.7-2.1) 07/23/18 22:05 Sodium 136 mmol/L (132-148) 07/27/18 07:15 Potassium 3.9 mmol/L (3.6-5.2) 07/27/18 07:15 Chloride 106 mmol/L (98-107) 07/27/18 07:15 Carbon Dioxide 27 mmol/L (22-30) 07/27/18 07:15 Anion Gap 7 (10-20) L 07/27/18 07:15 BUN 8 mg/dL (7-17) 07/27/18 07:15 Creatinine 0.7 mg/dL (0.7-1.2) 07/27/18 07:15 Est GFR ( Amer) > 60 07/27/18 07:15 Est GFR (Non-Af Amer) > 60 07/27/18 07:15 POC Glucose (mg/dL) 113 mg/dL (65-110) H 07/24/18 06:35 Random Glucose 118 mg/dL (65-105) H 07/27/18 07:15 Calcium 8.5 mg/dl (8.6-10.4) L 07/27/18 07:15 Phosphorus 3.9 mg/dL (2.5-4.5) 07/27/18 07:15 Magnesium 1.9 mg/dL (1.6-2.3) 07/27/18 07:15 Total Bilirubin 0.6 mg/dL (0.2-1.3) 07/27/18 07:15 AST 60 U/L (14-36) H D 07/27/18 07:15 ALT 43 U/L (9-52) 07/27/18 07:15 Alkaline Phosphatase 83 U/L (38-126) 07/27/18 07:15 Lactate Dehydrogenase 312 U/L (313-618) L 07/24/18 07:28 Total Protein 6.1 g/dL (6.3-8.3) L 07/27/18 07:15 Albumin 3.4 g/dL (3.5-5.0) L 07/27/18 07:15 Globulin 2.7 gm/dL (2.2-3.9) 07/27/18 07:15 Albumin/Globulin Ratio 1.3 (1.0-2.1) 07/27/18 07:15 Amylase 68 U/L (30-110) 07/24/18 07:28 Lipase 237 U/L (23-300) 07/26/18 06:50 Beta HCG, Quant < 2.39 mIU/ML 07/26/18 06:50 Venous Blood Potassium 3.6 mmol/L (3.6-5.2) 07/23/18 22:05 Urine Color Straw (YELLOW) 07/23/18 22:07 Urine Clarity Clear (Clear) 07/23/18 22:07 Urine pH 5.0 (5.0-8.0) 07/23/18 22:07 Ur Specific [place] 1.004 (1.003-1.030) 07/23/18 22:07 Urine Protein Negative mg/dL (NEGATIVE) 07/23/18 22:07 Urine Glucose (UA) Normal mg/dL (Normal) 07/23/18 22:07 Urine Ketones Negative mg/dL (NEGATIVE) 07/23/18 22:07 Urine Blood 1+ (NEGATIVE) H 07/23/18 22:07 Urine Nitrate Negative (NEGATIVE) 07/23/18 22:07 Urine Bilirubin Negative (NEGATIVE) 07/23/18 22:07 Urine Urobilinogen Normal mg/dL (0.2-1.0) 07/23/18 22:07 Ur Leukocyte Esterase Neg Deena/uL (Negative) 07/23/18 22:07 Urine WBC (Auto) < 1 /hpf (0-5) 07/23/18 22:07 Urine RBC (Auto) 1 /hpf (0-3) 07/23/18 22:07 Ur Squamous Epith Cells < 1 /hpf (0-5) 07/23/18 22:07 Urine HCG, Qual Negative (NEGATIVE) 07/23/18 22:07 Hepatitis A IgM Ab Negative (NEGATIVE) 07/24/18 11:15 Hep Bs Antigen Negative (NEGATIVE) 07/24/18 11:15 Hep B Core IgM Ab Negative (NEGATIVE) 07/24/18 11:15 Hepatitis C Antibody Negative (NEGATIVE) 07/24/18 11:15 HIV-1 Antibody (EIA) Positive (Negative) H 07/24/18 14:43 HIV-2 Antibody (EIA) Negative (Negative) 07/24/18 14:43 HIV 1&2 Antibody Screen Reactive (NEGATIVE) 07/24/18 11:15 HIV 1&2 Antibody Reactive (Nonreactive) H 07/24/18 14:43 Blood Type A POSITIVE 07/26/18 06:50 Antibody Screen Negative 07/26/18 06:50 Attending/Attestation - Attestation I have personally seen and examined this patient.: Yes I have fully participated in the care of the patient.: Yes I have reviewed all pertinent clinical information, including history, physical exam and plan: Yes Notes (Text): Patient seen, examined, case discussed with emergency medical services coordinator. Patient tolerated diet overnight. Patient advised to eat slowly and carefully and refrain from high fatty foods. No fever overnight patient white count is stable. Discussed with surgery team per surgery team patient is stable for discharge today. Advised antibiotic discharge. Patient is completed approximately 4 days of Zosyn while in-house. Patient to be discharged on Augmentin 875-125 mg p.o. 3 times daily 3-4 days for with probiotic for at least 1 month. Patient will need to follow-up with infectious disease doctor as well. HIV given that patient's new medication may also be contributing to her pancreatitis. Medications upon discharge: 1. Augmentin 875-125 mg p.o. twice daily for 4 days 2. Bacid 1 tab p.o. twice daily for 10 days This is a summary of patient's hospitalization please refer to EMR for full record in detail. Discharge diagnoses 1. Epigastric Pain Elevated Lipase Acute Cholecystitis Assessment/Plan * GI Consult (Dr. Ludwig) global vp creative + content marketing help appreciated * General surgery (Dr. Griggs) global vp creative + content marketing help appreciated * Lipase OA 787 * downtrending * Abdominal US (07/24/18): hepatomegaly; cholelithiasis, gallbladder is contracted. Calcification of the gallbladder wall/porcelian gallbladder cannot be excluded. b/l L5 spondylosis. * CT abdomen/pelvis (07/24/18): prominent liver ~18.3 cm in length. Increased echogenicity of the hepatic parenchymal cortex. Contracted gallbladder with cholelithiasis. Negative sonographic Goff's sign. Limited visualized of the pancreas. * HIDA (07/24/18): abnormal HIDA, cystic duct is occluded, presumptive evidence of acute cholecystitis. * Operative note from July 26, 2018: Robotic total hysterectomy, robotic extensive lysis of adhesions and internal lysis. Laparoscopic bilateral transverse abdominis plane placement. Postoperative diagnoses gallstone pancreatitis. Cholelithiasis. HIV * Patient is scheduled for cholecysectomy for acute cholecystitis given positive HIDA; patient is on empiric antibiotic coverage and completed surgery on July 26, 2018 * Surgery and anesthesia to discuss risks and benefits of procedure prior to OR, respectively. * Patient doing well postoperatively day 1. Per surgery stable for discharge. 2. Known history of HIV Assessment/Plan * Diagnosed 6 years ago; follow-up with outpatient infectious disease * Recently changed from Stribild to Biktarvy * HIV screening positive; pending lymphocyte subset 3 for CD4 count * Patient to follow-up with infectious disease doctor/HIV specialist in terms of restarting HIV medication 3. Hypertension Assessment/Plan * Patient denies being on any home medications * monitor vital signs 4. Osteoarthritis of R knee Assessment/Plan * hold home Tylenol * held Tramadol 50mg po TID prn on admission 5. PPx * DVT ppx: SCDs * GI: PPI 07/28/18 11:02
[2018-07-27 16:03] VITALS: BP 136/89; PULSE 78; TEMP 97.8; O2SAT 97
[2018-07-27 18:48] LABS: % CD4 (T HELPER CELL) 15 Percent (30-61); % CD8 (SUPPRESSOR T CELL) 66 Percent (12-42); ABSOLUTE CD4 CELLS 132 Cells/mcL (490-1740); ABSOLUTE CD8 CELLS 574 Cells/mcL (180-1170); ABSOLUTE LYMPHOCYTES 871 Cells/mcL (850-3900); HELPER/SUPPRESSOR RATIO 0.23 Ratio (0.86-5.00)
--- NOTE | 2018-07-27 19:10 | CP.PCM.PN ---
Subjective - Date & Time of Evaluation Date of Evaluation: 07/27/18 Time of Evaluation: 10:30 - Subjective Subjective: Surgery Progress Note- Dr. Griggs Patient seen and examined at bedside. no new complaints at this time. s/p Robotic Cholecystectomy POD1. pain adequately controlled. tolerating diet. Denies nausea/vomiting. + OOB and ambulating. Incisions C/D/I Objective - Vital Signs/Intake and Output Vital Signs (last 24 hours): Temp Pulse Resp BP Pulse Ox 97.8 F 78 20 136/89 97 07/27/18 16:01 07/27/18 16:01 07/27/18 16:01 07/27/18 16:01 07/27/18 16:01 - Medications Medications: Current Medications Acetaminophen (Tylenol 325mg Tab) 650 mg PO Q6 PRN PRN Reason: Pain, moderate (4-7) Last Admin: 07/27/18 17:36 Dose: 650 mg Piperacillin Sod/Tazobactam Sod (Zosyn 3.375 Gm Iv Premix) 3.375 gm in 50 mls @ 100 mls/hr IVPB Q6H MAURICIO; Protocol Last Admin: 07/27/18 13:34 Dose: 100 mls/hr Pantoprazole Sodium (Protonix Inj) 40 mg IVP DAILY MAURICIO Last Admin: 07/27/18 10:03 Dose: 40 mg - Labs Labs: 07/27/18 07:15 07/27/18 07:15 PT 11.2 SECONDS (9.7-12.2) 07/26/18 06:50 INR 1.0 07/26/18 06:50 APTT 29 SECONDS (21-34) 07/26/18 06:50 - Constitutional Appears: Non-toxic, No Acute Distress - Head Exam Head Exam: ATRAUMATIC - Eye Exam Eye Exam: EOMI - ENT Exam ENT Exam: Mucous Membranes Moist - Respiratory Exam Respiratory Exam: NORMAL BREATHING PATTERN. absent: Accessory Muscle Use, Respiratory Distress - Cardiovascular Exam Cardiovascular Exam: REGULAR RHYTHM. absent: Bradycardia, Tachycardia - GI/Abdominal Exam GI & Abdominal Exam: Soft, Tenderness (mildly tender around incisions sites). absent: Distended, Guarding, Rigid - Neurological Exam Neurological Exam: Alert, Awake, Oriented x3 - Psychiatric Exam Psychiatric exam: Normal Affect - Skin Skin Exam: Intact, Warm Assessment and Plan - Assessment and Plan (Free Text) Assessment: 53F Robotic Cholecystectomy POD1 Plan: - pain control PRN - Out of bed ambulate - regular diet PRN - cleared for discharge from surgical standpoint [employer] HALLY2
== END 2018-07-27 20:05 | disposition home or self-care (01) | DRG 556 ==
LOC: C.ER 19:40 → C.9E 22:16 → C.5S 23:50 → OBSVTOIN 07-25 16:30
PROVIDERS: ADMIT Hospitalist; ATTEND Hospitalist
PROC: 0DNW4ZZ Release Peritoneum, Percutaneous Endoscopic Approach (ICD-10-PCS; 2018-07-26)
PROC: 8E0W4CZ Robotic Assisted Procedure of Trunk Region, Percutaneous Endoscopic Approach (ICD-10-PCS; 2018-07-26)
PROC: 3E0T3BZ Introduction of Anesthetic Agent into Peripheral Nerves and Plexi, Percutaneous Approach (ICD-10-PCS; 2018-07-26)
PROC: 0FT44ZZ Resection of Gallbladder, Percutaneous Endoscopic Approach (ICD-10-PCS; principal; 2018-07-26 12:30)
DX: K85.10 Biliary acute pancreatitis without necrosis or infection (principal); B20 Human immunodeficiency virus [HIV] disease; K80.13 Calculus of gallbladder with acute and chronic cholecystitis with obstruction; K66.0 Peritoneal adhesions (postprocedural) (postinfection); I10 Essential (primary) hypertension; E66.01 Morbid (severe) obesity due to excess calories; F10.10 Alcohol abuse, uncomplicated; J45.909 Unspecified asthma, uncomplicated; K27.9 Peptic ulcer, site unspecified, unspecified as acute or chronic, without hemorrhage or perforation; M17.11 Unilateral primary osteoarthritis, right knee; M47.816 Spondylosis without myelopathy or radiculopathy, lumbar region; H40.9 Unspecified glaucoma; F17.210 Nicotine dependence, cigarettes, uncomplicated; Z90.710 Acquired absence of both cervix and uterus; Z80.0 Family history of malignant neoplasm of digestive organs; Z80.1 Family history of malignant neoplasm of trachea, bronchus and lung